=== PATIENT | female | born 1950 | race Caucasian/White ===

== ENCOUNTER 2020-11-30 13:51 | Inpatient (IN) | payer OTHER ==
[2020-11-30 16:22] LABS: BASO % 0.5 % (0-2.0); EOS % 1.6 % (0-4.5); HEMATOCRIT 28.5 % (32.4-45.2); HEMOGLOBIN 9.3 GM/dL (10.7-15.3); LYMPH % 19.9 % (8-40); MCH 30.5 pg (25.7-33.7); MCHC 32.5 g/dl (32.0-36.0); MEAN CELL VOLUME 93.8 fl (80-96); MEAN PLT VOLUME 8.9 fl (7.5-11.1); MONO % 7.9 % (3.8-10.2); NEUT % 70.1 % (42.8-82.8); PLATELET COUNT 302 K/MM3 (134-434); RBC 3.04 M/mm3 (3.60-5.2); RDW 18.1 % (11.6-15.6); WHITE BLOOD COUNT 9.1 K/mm3 (4.0-10.0)
[2020-11-30 16:32] LABS: CHLORIDE 111 mmol/L (98-107); PROTHROMBIN TIME (PATIENT) 12.1 SEC (9.7-13.0); SODIUM 136 mmol/L (136-145)
[2020-11-30 16:33] LABS: CALCIUM 9.5 mg/dL (8.5-10.1)
[2020-11-30 16:34] LABS: ALBUMIN 3.1 g/dl (3.4-5.0); ANION GAP 3 MMOL/L (8-16); BLOOD UREA NITROGEN 24.2 mg/dL (7-18); CO2 22 mmol/L (21-32); GLUCOSE,RANDOM 169 mg/dL (74-106)
[2020-11-30 16:37] LABS: CREATININE 0.8 mg/dL (0.55-1.3); SGOT/AST 53 U/L (15-37); SGPT/ALT 22 U/L (13-61)
[2020-11-30 16:39] LABS: BILIRUBIN,TOTAL 0.4 mg/dL (0.2-1); TOT PROT 7.4 g/dl (6.4-8.2)
[2020-11-30 16:40] LABS: ALK PHOS 275 U/L (45-117)
[2020-11-30 16:42] LABS: N-TERMINAL BNP 418.2 pg/ml (5-125)
[2020-11-30 18:04] LABS: EPI CELLS 4 /uL (0-25.1); HYALINE CASTS 6 /uL (0-3.1); URINE APPEARANCE CLOUDY; URINE BACTERIA 1178 /uL (0-1359); URINE BILIRUBIN NEGATIVE (NEGATIVE); URINE COLOR YELLOW; URINE GLUCOSE (UA) NEGATIVE (NEGATIVE); URINE KETONE NEGATIVE (NEGATIVE); URINE LEUK ESTERASE 2+ (NEGATIVE); URINE NITRITE NEGATIVE (NEGATIVE); URINE PROTEIN 2+ (NEGATIVE); URINE UROBILINOGEN 0.2 mg/dL (0.2-1.0); URINE WBC 174 /uL (0-25.8)
[2020-11-30] MEDS ORDERED: CEFTRIAXONE 1,000 MG in DEXTROSE 5%-WATER - 50 ML IVPB ONE (18:15)
[2020-11-30] MEDS ORDERED: CEFTRIAXONE 1 GM/50 ML BAG ONE (18:33)
[2020-11-30 18:37] LABS: CALCIUM 9.3 mg/dL (8.5-10.1)
[2020-11-30 18:38] LABS: BLOOD UREA NITROGEN 24.3 mg/dL (7-18)
[2020-11-30 18:41] LABS: CREATININE 0.8 mg/dL (0.55-1.3)
[2020-11-30] MEDS ORDERED: FUROSEMIDE 40 MG/4 ML INJECTABLE VIAL IVPUSH ONE (22:58)
[2020-12-01 01:02] VITALS: BMI 19.5
[2020-12-01 08:58] LABS: HEMATOCRIT 26.2 % (32.4-45.2); HEMOGLOBIN 8.7 GM/dL (10.7-15.3); MCH 30.9 pg (25.7-33.7); MCHC 33.3 g/dl (32.0-36.0); MEAN CELL VOLUME 92.8 fl (80-96); MEAN PLT VOLUME 8.9 fl (7.5-11.1); PLATELET COUNT 295 K/MM3 (134-434); RBC 2.82 M/mm3 (3.60-5.2); RDW 17.7 % (11.6-15.6); WHITE BLOOD COUNT 8.9 K/mm3 (4.0-10.0)
[2020-12-01 09:20] LABS: ALBUMIN 2.9 g/dl (3.4-5.0); CALCIUM 9.4 mg/dL (8.5-10.1)
[2020-12-01 09:21] LABS: BLOOD UREA NITROGEN 21.4 mg/dL (7-18); MAGNESIUM 1.8 mg/dL (1.8-2.4)
[2020-12-01 09:24] LABS: CREATININE 0.9 mg/dL (0.55-1.3); PHOSPHOROUS 3.5 mg/dL (2.5-4.9)
[2020-12-01 09:25] LABS: BILIRUBIN,TOTAL 0.2 mg/dL (0.2-1); TOT PROT 6.7 g/dl (6.4-8.2)
[2020-12-01] MEDS ORDERED: FLU VACCINE (FLULAVAL) PF 60 MCG/0.5 ML SYRINGE 2020-2021 IM ONE (10:00)
[2020-12-01] MEDS: ASPIRIN 81 MG CHEWABLE TABLETS PO SCH (10:18)
[2020-12-01] MEDS: CLOPIDOGREL BISULFATE 75 MG TABLET (FP) PO SCH (10:19)
[2020-12-01] MEDS: ENOXAPARIN NA (PORCINE) 40 MG/0.4 ML DISP.SYRIN SQ SCH (10:19)
[2020-12-01] MEDS: INSULIN SLIDING SCALE (NOVOLOG) 1 VIAL SQ SCH ×2 (16:15→21:49)
[2020-12-01] MEDS: ACETAMINOPHEN 325 MG TABLET (FP) PO PRN (20:00)
[2020-12-01] MEDS ORDERED: MELATONIN 5 MG TABLETS PO ONE (22:00)
[2020-12-02] MEDS: INSULIN SLIDING SCALE (NOVOLOG) 1 VIAL SQ SCH ×4 (06:04→21:46)
[2020-12-02] MEDS ORDERED: LOSARTAN POTASSIUM 25 MG TABLET PO ONE (07:39)
[2020-12-02] MEDS ORDERED: DEXTROSE 5%-WATER - 50 ML IVPB ONE (09:23)
[2020-12-02] MEDS ORDERED: cefTRIAXone SODIUM 1 GM VIAL ONE (09:23)
[2020-12-02] MEDS: CLOPIDOGREL BISULFATE 75 MG TABLET (FP) PO SCH (09:30)
[2020-12-02] MEDS: ASPIRIN 81 MG CHEWABLE TABLETS PO SCH (09:31)
[2020-12-02] MEDS: ENOXAPARIN NA (PORCINE) 40 MG/0.4 ML DISP.SYRIN SQ SCH (09:31)
[2020-12-02] MEDS: CEFTRIAXONE 1 GM in DEXTROSE 5%-WATER - 50 ML IVPB SCH (09:31)
[2020-12-02 09:42] LABS: BASO % 0.6 % (0-2.0); HEMATOCRIT 24.2 % (32.4-45.2); HEMOGLOBIN 8.3 GM/dL (10.7-15.3); LYMPH % 21.1 % (8-40); MCH 31.4 pg (25.7-33.7); MCHC 34.1 g/dl (32.0-36.0); MEAN CELL VOLUME 92.1 fl (80-96); MEAN PLT VOLUME 8.5 fl (7.5-11.1); MONO % 11.7 % (3.8-10.2); NEUT % 63.6 % (42.8-82.8); PLATELET COUNT 254 K/MM3 (134-434); RBC 2.63 M/mm3 (3.60-5.2); RDW 17.4 % (11.6-15.6); WHITE BLOOD COUNT 7.2 K/mm3 (4.0-10.0)
[2020-12-02] MEDS ORDERED: PATIENT'S OWN MEDICATION (NON-FORMULARY) (Lisinopril [Zestril] 2.5 MG Tablet) PO SCH (10:00)
[2020-12-02] MEDS ORDERED: LISINOPRIL 5 MG TABLET PO SCH (10:00)
[2020-12-02 10:22] LABS: ALBUMIN 2.4 g/dl (3.4-5.0); BLOOD UREA NITROGEN 20.2 mg/dL (7-18); CALCIUM 8.9 mg/dL (8.5-10.1); MAGNESIUM 1.8 mg/dL (1.8-2.4)
[2020-12-02 10:25] LABS: CREATININE 0.9 mg/dL (0.55-1.3)
[2020-12-02 10:27] LABS: BILIRUBIN,TOTAL 0.2 mg/dL (0.2-1); TOT PROT 5.8 g/dl (6.4-8.2)
[2020-12-02] MEDS: COLLAGENASE CLOSTRIDIUM HIST. 30 GRAMS TUBE TP SCH (10:59)
[2020-12-02] MEDS: ACETAMINOPHEN 325 MG TABLET (FP) PO PRN (13:37)
[2020-12-02] MEDS ORDERED: INSULIN (NOVOLOG) ASPART 100 UNITS/ML 10ML VIAL ONE (17:31)
[2020-12-02] MEDS ORDERED: MELATONIN 5 MG TABLETS PO ONE (21:18)
[2020-12-03] MEDS: INSULIN SLIDING SCALE (NOVOLOG) 1 VIAL SQ SCH ×4 (06:00→21:14)
[2020-12-03] MEDS ORDERED: DEXTROSE 5%-WATER - 50 ML IVPB ONE (08:53)
[2020-12-03] MEDS ORDERED: cefTRIAXone SODIUM 1 GM VIAL ONE (08:53)
[2020-12-03] MEDS: COLLAGENASE CLOSTRIDIUM HIST. 30 GRAMS TUBE TP SCH (09:06)
[2020-12-03] MEDS: ASPIRIN 81 MG CHEWABLE TABLETS PO SCH (09:08)
[2020-12-03] MEDS: ENOXAPARIN NA (PORCINE) 40 MG/0.4 ML DISP.SYRIN SQ SCH (09:08)
[2020-12-03] MEDS: CLOPIDOGREL BISULFATE 75 MG TABLET (FP) PO SCH (09:08)
[2020-12-03] MEDS: CEFTRIAXONE 1 GM in DEXTROSE 5%-WATER - 50 ML IVPB SCH (09:08)
[2020-12-03] MEDS ORDERED: LISINOPRIL 5 MG TABLET PO SCH (10:00)
[2020-12-03] MEDS ORDERED: LISINOPRIL 10 MG TABLET PO SCH (11:44)
[2020-12-03] MEDS ORDERED: INSULIN (NOVOLOG) ASPART 100 UNITS/ML 10ML VIAL ONE ×2 (16:16→21:11)
[2020-12-03] MEDS: ACETAMINOPHEN 325 MG TABLET (FP) PO PRN (16:57)
[2020-12-04] MEDS: ACETAMINOPHEN 325 MG TABLET (FP) PO PRN (04:07)
[2020-12-04] MEDS: INSULIN SLIDING SCALE (NOVOLOG) 1 VIAL SQ SCH ×2 (06:03→11:42)
[2020-12-04] MEDS ORDERED: LISINOPRIL 10 MG TABLET PO SCH (08:37)
[2020-12-04 08:40] LABS: BASO % 0.7 % (0-2.0); EOS % 2.6 % (0-4.5); HEMATOCRIT 27.2 % (32.4-45.2); HEMOGLOBIN 9.3 GM/dL (10.7-15.3); LYMPH % 19.8 % (8-40); MCH 31.6 pg (25.7-33.7); MCHC 34.2 g/dl (32.0-36.0); MEAN CELL VOLUME 92.4 fl (80-96); MEAN PLT VOLUME 8.6 fl (7.5-11.1); MONO % 10.6 % (3.8-10.2); NEUT % 66.3 % (42.8-82.8); PLATELET COUNT 282 K/MM3 (134-434); RBC 2.95 M/mm3 (3.60-5.2); RDW 17.2 % (11.6-15.6); WHITE BLOOD COUNT 8.3 K/mm3 (4.0-10.0)
[2020-12-04 09:26] LABS: CALCIUM 8.8 mg/dL (8.5-10.1)
[2020-12-04 09:27] LABS: BLOOD UREA NITROGEN 36.4 mg/dL (7-18); MAGNESIUM 1.9 mg/dL (1.8-2.4)
[2020-12-04 09:30] LABS: CREATININE 1.2 mg/dL (0.55-1.3); PHOSPHOROUS 4.1 mg/dL (2.5-4.9)
[2020-12-04 09:31] LABS: BILIRUBIN,TOTAL 0.2 mg/dL (0.2-1); TOT PROT 6.5 g/dl (6.4-8.2)
[2020-12-04 09:35] LABS: ALBUMIN 2.9 g/dl (3.4-5.0)
[2020-12-04] MEDS ORDERED: cefTRIAXone SODIUM 1 GM VIAL ONE (09:37)
[2020-12-04] MEDS ORDERED: DEXTROSE 5%-WATER - 50 ML IVPB ONE (09:38)
[2020-12-04] MEDS: ENOXAPARIN NA (PORCINE) 40 MG/0.4 ML DISP.SYRIN SQ SCH (09:39)
[2020-12-04] MEDS: CLOPIDOGREL BISULFATE 75 MG TABLET (FP) PO SCH (09:39)
[2020-12-04] MEDS: CEFTRIAXONE 1 GM in DEXTROSE 5%-WATER - 50 ML IVPB SCH (09:39)
[2020-12-04] MEDS: ASPIRIN 81 MG CHEWABLE TABLETS PO SCH (09:39)
[2020-12-04] MEDS: COLLAGENASE CLOSTRIDIUM HIST. 30 GRAMS TUBE TP SCH (09:39)
[2020-12-04] MEDS ORDERED: LISINOPRIL 20 MG TABLET PO SCH (10:00)
[2020-12-04 14:50] VITALS: BP 130/65; PULSE 81; TEMP 98.4
== END 2020-12-04 16:43 | disposition home health service (06) | DRG 300 ==
LOC: JER 13:51 → JERBED 20:02 → J6S 12-01 00:26
PROVIDERS: ADMIT Internal Medicine; ATTEND Internal Medicine
PROC: B24BZZZ Ultrasonography of Heart with Aorta (ICD-10-PCS; principal; 2020-12-02)
DX: E11.52 Type 2 diabetes mellitus with diabetic peripheral angiopathy with gangrene (principal); N39.0 Urinary tract infection, site not specified; Z91.14 Patient's other noncompliance with medication regimen; D64.9 Anemia, unspecified; Z89.421 Acquired absence of other right toe(s); Z86.16 Personal history of COVID-19; Z79.4 Long term (current) use of insulin; E11.621 Type 2 diabetes mellitus with foot ulcer; L97.519 Non-pressure chronic ulcer of other part of right foot with unspecified severity; T46.1X5A Adverse effect of calcium-channel blockers, initial encounter; I11.0 Hypertensive heart disease with heart failure; I50.9 Heart failure, unspecified
CPT/HCPCS: 36415; 71046-TC-FY; 73630-TC-RT-FY; 80048; 80053; 81003; 82550; 82728; 82962; 83010; 83550; 83735; 83880; 84100; 84484; 85025; 85027; 85045; 85610; 87086; 87186; 93005; 93010; 93306-TC; 93922; 93926-TC; 93970-TC; 97116-GP; 97161-GP; 99285-25; C9803; G0008; Q2036; U0003

== ENCOUNTER 2021-08-14 12:14 | Inpatient (IN) | payer BC, OTHER ==
[2021-08-14] MEDS ORDERED: HEPARIN NA (PORCINE) 5,000 UNITS/ML 1ML VIAL IVPUSH PRN ×2 (16:44)
[2021-08-14] MEDS ORDERED: HEPARIN - 25,000 UNIT in SODIUM CHLORIDE 495 ML IV SCH (16:45)
[2021-08-14 16:54] LABS: BASO % 0.5 % (0-2.0); EOS % 3.6 % (0-4.5); HEMATOCRIT 23.1 % (32.4-45.2); HEMOGLOBIN 7.5 GM/dL (10.7-15.3); LYMPH % 19.7 % (8-40); MCH 31.1 pg (25.7-33.7); MCHC 32.5 g/dl (32.0-36.0); MEAN CELL VOLUME 95.7 fl (80-96); MEAN PLT VOLUME 8.7 fl (7.5-11.1); MONO % 10.2 % (3.8-10.2); PLATELET COUNT 259 10^3/uL (134-434); RBC 2.42 M/mm3 (3.60-5.2); RDW 17.2 % (11.6-15.6); WHITE BLOOD COUNT 9.1 K/mm3 (4.0-10.0)
[2021-08-14 17:05] LABS: INR 1.05 (0.83-1.09); PROTHROMBIN TIME (PATIENT) 12.3 SEC (9.7-13.0)
[2021-08-14 17:08] LABS: ACTIVATED PTT 29.8 SECONDS (25.2-36.5)
[2021-08-14 17:16] LABS: CALCIUM 8.6 mg/dL (8.5-10.1)
[2021-08-14 17:17] LABS: ALBUMIN 2.6 g/dl (3.4-5.0)
[2021-08-14 17:18] LABS: BILIRUBIN,TOTAL 0.1 mg/dL (0.2-1); TOT PROT 6.5 g/dl (6.4-8.2)
[2021-08-14 17:20] LABS: CREATININE 1.7 mg/dL (0.55-1.3)
[2021-08-14] MEDS ORDERED: SODIUM CHLORIDE 0.9% 500 ML INFUS.BAG IV ONE ×2 (17:45→18:15)
[2021-08-14] MEDS ORDERED: INSULIN REGULAR HUMAN 100 UNITS/ML *VIAL IVPUSH ONE (18:15)
[2021-08-14] MEDS ORDERED: DEXTROSE 50%-WATER - 25 GM/50 ML VIAL IVPUSH ONE (18:16)
[2021-08-14] MEDS ORDERED: SODIUM ZIRCONIUM CYCLOSILICATE (LOKELMA) 5 GM PACKET PO ONE (18:18)
[2021-08-14] MEDS ORDERED: DEXTROSE 50%-WATER 25 GM/50 ML DISP.SYRIN ONE (18:28)
[2021-08-14] MEDS ORDERED: SODIUM ZIRCONIUM CYCLOSILICATE (LOKELMA) 5 GM PACKET ONE (18:28)
[2021-08-14] MEDS ORDERED: ACETAMINOPHEN 325 MG TABLET (FP) PO PRN (22:53)
[2021-08-14] MEDS ORDERED: VANCOMYCIN 1 GRAM (PRE-DOCKED) 1,000 MG/250 ML BAG IVPB SCH (23:45)
[2021-08-14] MEDS ORDERED: SODIUM CHLORIDE 1,000 ML IV SCH (23:45)
[2021-08-14] MEDS ORDERED: PIPERACILLIN/TAZOB 2.25 GM 2.25 GM in DEXTROSE 5%-WATER - 50 ML IVPB SCH (23:45)
[2021-08-14] MEDS ORDERED: VANCOMYCIN 1 GRAM (PRE-DOCKED) 1,000 MG/250 ML BAG IVPB ONE (23:55)
[2021-08-15] MEDS ORDERED: DEXTROSE 5%-WATER - 50 ML IVPB ONE ×2 (02:41→08:40)
[2021-08-15] MEDS ORDERED: PIPERACILLIN/TAZOBACTAM 2.25 GM VIAL IVPB ONE ×2 (02:41→08:40)
[2021-08-15] MEDS ORDERED: PIPERACILLIN/TAZOB 2.25 GM 2.25 GM in DEXTROSE 5%-WATER - 50 ML IVPB SCH ×4 (03:00→15:00)
[2021-08-15 03:19] LABS: HEMATOCRIT 21.7 % (32.4-45.2); MCH 30.6 pg (25.7-33.7); MCHC 32.1 g/dl (32.0-36.0); MEAN CELL VOLUME 95.3 fl (80-96); MEAN PLT VOLUME 8.4 fl (7.5-11.1); PLATELET COUNT 212 10^3/uL (134-434); RBC 2.28 M/mm3 (3.60-5.2); WHITE BLOOD COUNT 7.3 K/mm3 (4.0-10.0)
[2021-08-15] MEDS: INSULIN SLIDING SCALE (NOVOLOG) 1 VIAL SQ SCH ×2 (06:01→11:30)
[2021-08-15] MEDS ORDERED: PIPERACILLIN/TAZOB 2.25 GM 2.25 GM in DEXTROSE 5%-WATER - 50 ML IVPB ONE (08:15)
[2021-08-15] MEDS ORDERED: HEPARIN NA (PORCINE) 5,000 UNITS/ML 1ML VIAL ONE ×2 (08:18→10:29)
[2021-08-15] MEDS ORDERED: LIDOCAINE HCL 1%, 10 MG/ML (20ML VIAL) ONE (08:18)
[2021-08-15] MEDS ORDERED: PT OWN MED DRAWER 7, Y5N ONE ×2 (08:41→21:21)
[2021-08-15 09:05] LABS: BASO % 0.6 % (0-2.0); EOS % 4.5 % (0-4.5); HEMATOCRIT 22.3 % (32.4-45.2); HEMOGLOBIN 7.4 GM/dL (10.7-15.3); LYMPH % 22.6 % (8-40); MCH 31.5 pg (25.7-33.7); MCHC 33.4 g/dl (32.0-36.0); MEAN CELL VOLUME 94.2 fl (80-96); MEAN PLT VOLUME 8.4 fl (7.5-11.1); MONO % 11.6 % (3.8-10.2); NEUT % 60.7 % (42.8-82.8); PLATELET COUNT 224 10^3/uL (134-434); RBC 2.36 M/mm3 (3.60-5.2); RDW 16.4 % (11.6-15.6); WHITE BLOOD COUNT 7.1 K/mm3 (4.0-10.0)
[2021-08-15 09:36] LABS: CALCIUM 8.2 mg/dL (8.5-10.1)
[2021-08-15 09:37] LABS: ALBUMIN 2.3 g/dl (3.4-5.0); BLOOD UREA NITROGEN 44.2 mg/dL (7-18); MAGNESIUM 2.2 mg/dL (1.8-2.4)
[2021-08-15 09:40] LABS: CREATININE 1.3 mg/dL (0.55-1.3); PHOSPHOROUS 3.4 mg/dL (2.5-4.9)
[2021-08-15 09:41] LABS: BILIRUBIN,TOTAL 0.1 mg/dL (0.2-1); TOT PROT 5.8 g/dl (6.4-8.2)
[2021-08-15] MEDS ORDERED: MIDAZOLAM HCL 2 MG/2 ML SINGLE DOSE VIAL ONE ×2 (09:56)
[2021-08-15] MEDS ORDERED: CHOLECALCIFEROL (VIT D3) 400 UNIT (10 MCG) TABLET PO SCH (10:00)
[2021-08-15] MEDS ORDERED: BACITRACIN 15 GM TUBE TOPICAL OINTMENT TP SCH (10:00)
[2021-08-15] MEDS ORDERED: GABAPENTIN 100 MG CAPSULE PO SCH (10:00)
[2021-08-15] MEDS ORDERED: PROPOFOL 20 ML ONE (10:11)
[2021-08-15] MEDS ORDERED: LIDOCAINE HCL 1%, 10 MG/ML (20ML VIAL) NR ONE ×2 (10:18)
[2021-08-15] MEDS ORDERED: CLOPIDOGREL BISULFATE 75 MG TABLET (FP) PO SCH (11:15)
[2021-08-15] MEDS ORDERED: oxyCODONE HCL 5 MG TABLET PO PRN (11:17)
[2021-08-15] MEDS ORDERED: SODIUM CHLORIDE 1,000 ML IV SCH (11:24)
[2021-08-15] MEDS ORDERED: CLOPIDOGREL BISULFATE 75 MG TABLET (FP) PO ONE (12:00)
[2021-08-15] MEDS: PIPERACILLIN/TAZOB 2.25 GM 2.25 GM in DEXTROSE 5%-WATER - 50 ML IVPB SCH ×2 (12:29→12:30)
[2021-08-15] MEDS: VANCOMYCIN 1 GM in D5W (PRE-DOCKED) 1,000 MG/250 ML IVPB SCH (12:30)
[2021-08-15] MEDS ORDERED: SODIUM CHLORIDE 500 ML IV STA (15:27)
[2021-08-15] MEDS ORDERED: POLYETHYLENE GLYCOL 3350 119 GM BTL PO ONE (16:49)
[2021-08-15] MEDS: NYSTATIN 100,000 UNIT/GM TOPICAL CREAM 15 GM TUBE TP SCH (21:41)
[2021-08-15] MEDS: POLYETHYLENE GLYCOL 3350 119 GM BTL PO SCH (21:41)
[2021-08-15] MEDS: ATORVASTATIN CA 40 MG TABLET (FP) PO SCH (21:41)
[2021-08-15] MEDS: DOCUSATE SODIUM 100 MG CAPSULE (FP) PO SCH (21:41)
[2021-08-15] MEDS: RIVAROXABAN 2.5 MG TABLET PO SCH (21:42)
[2021-08-15] MEDS: ACETAMINOPHEN 325 MG TABLET (FP) PO PRN (21:47)
[2021-08-15] MEDS ORDERED: ATORVASTATIN CA 40 MG TABLET (FP) PO SCH (22:00)
[2021-08-16] MEDS ORDERED: VANCOMYCIN 1 GRAM (PRE-DOCKED) 1,000 MG/250 ML BAG IVPB SCH
[2021-08-16 09:34] LABS: HEMATOCRIT 14.5 % (32.4-45.2); MCH 30.6 pg (25.7-33.7); MCHC 32.8 g/dl (32.0-36.0); MEAN CELL VOLUME 93.1 fl (80-96); MEAN PLT VOLUME 8.7 fl (7.5-11.1); PLATELET COUNT 198 10^3/uL (134-434); RBC 1.56 M/mm3 (3.60-5.2); RDW 17.7 % (11.6-15.6); WHITE BLOOD COUNT 13.3 K/mm3 (4.0-10.0)
[2021-08-16] MEDS: ASPIRIN COATED 81 MG TABLET.EC PO SCH (09:41)
[2021-08-16] MEDS: GABAPENTIN 100 MG CAPSULE PO SCH (09:42)
[2021-08-16] MEDS: CHOLECALCIFEROL (VIT D3) 400 UNIT (10 MCG) TABLET PO SCH (09:42)
[2021-08-16 09:44] LABS: HEMOGLOBIN 4.8 GM/dL (10.7-15.3)
[2021-08-16] MEDS ORDERED: VANCOMYCIN 1 GM in D5W (PRE-DOCKED) 1,000 MG/250 ML IVPB SCH (10:00)
[2021-08-16 10:17] LABS: ALBUMIN 2.2 g/dl (3.4-5.0); BLOOD UREA NITROGEN 48.5 mg/dL (7-18); CALCIUM 7.4 mg/dL (8.5-10.1); MAGNESIUM 2.1 mg/dL (1.8-2.4)
[2021-08-16 10:20] LABS: CREATININE 2.1 mg/dL (0.55-1.3)
[2021-08-16 10:22] LABS: BILIRUBIN,TOTAL 0.1 mg/dL (0.2-1); TOT PROT 5.5 g/dl (6.4-8.2)
[2021-08-16 10:52] LABS: ANISOCYTOSIS 1+; MACROCYTOSIS 1+; PLATELET ESTIMATE NORMAL
[2021-08-16] MEDS: NYSTATIN 100,000 UNIT/GM TOPICAL CREAM 15 GM TUBE TP SCH ×2 (11:35→21:32)
[2021-08-16] MEDS: POLYETHYLENE GLYCOL 3350 119 GM BTL PO SCH ×2 (11:36→21:40)
[2021-08-16] MEDS: BACITRACIN 15 GM TUBE TOPICAL OINTMENT TP SCH (11:36)
[2021-08-16 12:40] LABS: BASO % 0.1 % (0-2.0); EOS % 0.1 % (0-4.5); HEMATOCRIT 13.1 % (32.4-45.2); LYMPH % 9.1 % (8-40); MCH 30.5 pg (25.7-33.7); MCHC 32.9 g/dl (32.0-36.0); MEAN CELL VOLUME 92.8 fl (80-96); MEAN PLT VOLUME 8.3 fl (7.5-11.1); MONO % 12.4 % (3.8-10.2); NEUT % 78.3 % (42.8-82.8); PLATELET COUNT 197 10^3/uL (134-434); RBC 1.41 M/mm3 (3.60-5.2); RDW 17.3 % (11.6-15.6); WHITE BLOOD COUNT 14.6 K/mm3 (4.0-10.0)
[2021-08-16 12:50] LABS: HEMOGLOBIN 4.3 GM/dL (10.7-15.3)
[2021-08-16] MEDS: RIVAROXABAN 2.5 MG TABLET PO SCH (13:23)
[2021-08-16] MEDS ORDERED: PT OWN MED DRAWER 7, Y5N ONE (14:39)
[2021-08-16] MEDS: SODIUM ZIRCONIUM CYCLOSILICATE (LOKELMA) 5 GM PACKET PO SCH (17:15)
[2021-08-16] MEDS: SODIUM CHLORIDE 1,000 ML IV SCH (17:16)
[2021-08-16 20:31] LABS: MCH 28.5 pg (25.7-33.7); MCHC 32.1 g/dl (32.0-36.0); MEAN CELL VOLUME 88.7 fl (80-96); MEAN PLT VOLUME 8.1 fl (7.5-11.1); PLATELET COUNT 168 10^3/uL (134-434); RBC 1.92 M/mm3 (3.60-5.2); RDW 18.7 % (11.6-15.6); WHITE BLOOD COUNT 14.3 K/mm3 (4.0-10.0)
[2021-08-16 20:39] LABS: HEMATOCRIT 17.1 % (32.4-45.2); HEMOGLOBIN 5.5 GM/dL (10.7-15.3)
[2021-08-16] MEDS: ATORVASTATIN CA 40 MG TABLET (FP) PO SCH (21:32)
[2021-08-16] MEDS: DOCUSATE SODIUM 100 MG CAPSULE (FP) PO SCH (21:40)
[2021-08-17 01:45] LABS: BASO % 0.4 % (0-2.0); HEMATOCRIT 21.5 % (32.4-45.2); HEMOGLOBIN 7.2 GM/dL (10.7-15.3); LYMPH % 11.2 % (8-40); MCH 29.4 pg (25.7-33.7); MCHC 33.3 g/dl (32.0-36.0); MEAN CELL VOLUME 88.4 fl (80-96); MEAN PLT VOLUME 7.7 fl (7.5-11.1); MONO % 13.4 % (3.8-10.2); PLATELET COUNT 170 10^3/uL (134-434); RBC 2.44 M/mm3 (3.60-5.2); RDW 17.2 % (11.6-15.6); WHITE BLOOD COUNT 13.7 K/mm3 (4.0-10.0)
[2021-08-17] MEDS: ACETAMINOPHEN 325 MG TABLET (FP) PO PRN ×2 (06:08→21:49)
[2021-08-17] MEDS ORDERED: ACETAMINOPHEN 1000 MG/100 ML BAG IVPB PRN (09:07)
[2021-08-17 10:22] LABS: BASO % 0.2 % (0-2.0); EOS % 1.2 % (0-4.5); HEMATOCRIT 26.7 % (32.4-45.2); HEMOGLOBIN 9.1 GM/dL (10.7-15.3); LYMPH % 10.4 % (8-40); MCHC 33.9 g/dl (32.0-36.0); MEAN CELL VOLUME 88.3 fl (80-96); MEAN PLT VOLUME 8.4 fl (7.5-11.1); MONO % 11.4 % (3.8-10.2); NEUT % 76.8 % (42.8-82.8); PLATELET COUNT 157 10^3/uL (134-434); RBC 3.02 M/mm3 (3.60-5.2); RDW 16.6 % (11.6-15.6); WHITE BLOOD COUNT 13.5 K/mm3 (4.0-10.0)
[2021-08-17] MEDS: amLODIPine BESYLATE 5 MG TABLET (FP) PO SCH (10:46)
[2021-08-17] MEDS: GABAPENTIN 100 MG CAPSULE PO SCH ×2 (10:53→21:49)
[2021-08-17] MEDS: CHOLECALCIFEROL (VIT D3) 400 UNIT (10 MCG) TABLET PO SCH (10:53)
[2021-08-17 10:54] LABS: ALBUMIN 2.3 g/dl (3.4-5.0); BLOOD UREA NITROGEN 34.6 mg/dL (7-18); CALCIUM 8.3 mg/dL (8.5-10.1); MAGNESIUM 2.4 mg/dL (1.8-2.4)
[2021-08-17 10:57] LABS: CREATININE 1.4 mg/dL (0.55-1.3)
[2021-08-17 10:59] LABS: BILIRUBIN,TOTAL 0.9 mg/dL (0.2-1); TOT PROT 5.7 g/dl (6.4-8.2)
[2021-08-17] MEDS: SODIUM ZIRCONIUM CYCLOSILICATE (LOKELMA) 5 GM PACKET PO SCH (11:00)
[2021-08-17] MEDS: BACITRACIN 15 GM TUBE TOPICAL OINTMENT TP SCH (11:00)
[2021-08-17] MEDS ORDERED: PT OWN MED DRAWER 7, Y5N ONE ×2 (11:26→21:11)
[2021-08-17 13:04] VITALS: BMI 23.2
[2021-08-17] MEDS: NYSTATIN 100,000 UNIT/GM TOPICAL CREAM 15 GM TUBE TP SCH ×2 (13:34→22:37)
[2021-08-17] MEDS: SODIUM CHLORIDE 1,000 ML IV SCH (13:36)
[2021-08-17] MEDS: INSULIN SLIDING SCALE (NOVOLOG) 1 VIAL SQ SCH ×2 (17:03→21:57)
[2021-08-17] MEDS: POLYETHYLENE GLYCOL 3350 119 GM BTL PO SCH (17:26)
[2021-08-17] MEDS: ATORVASTATIN CA 40 MG TABLET (FP) PO SCH (21:49)
[2021-08-17] MEDS: DOCUSATE SODIUM 100 MG CAPSULE (FP) PO SCH (21:56)
[2021-08-17] MEDS: POLYETHYLENE GLYCOL (HEALTHYLAX) 3350 17 GM PACKET PO SCH (21:57)
[2021-08-17] MEDS ORDERED: POLYETHYLENE GLYCOL (HEALTHYLAX) 3350 17 GM PACKET PO SCH (22:00)
[2021-08-18] MEDS ORDERED: traMADol HCL 50 MG TABLET PO ONE (01:52)
[2021-08-18] MEDS: INSULIN SLIDING SCALE (NOVOLOG) 1 VIAL SQ SCH ×4 (06:07→23:27)
[2021-08-18 09:11] LABS: BASO % 0.3 % (0-2.0); EOS % 3.5 % (0-4.5); HEMATOCRIT 33.1 % (32.4-45.2); HEMOGLOBIN 11.2 GM/dL (10.7-15.3); LYMPH % 10.8 % (8-40); MCH 29.9 pg (25.7-33.7); MCHC 33.8 g/dl (32.0-36.0); MEAN CELL VOLUME 88.4 fl (80-96); MEAN PLT VOLUME 8.2 fl (7.5-11.1); MONO % 10.7 % (3.8-10.2); NEUT % 74.7 % (42.8-82.8); PLATELET COUNT 164 10^3/uL (134-434); RBC 3.74 M/mm3 (3.60-5.2); WHITE BLOOD COUNT 13.5 K/mm3 (4.0-10.0)
[2021-08-18 09:34] LABS: CALCIUM 8.1 mg/dL (8.5-10.1)
[2021-08-18 09:35] LABS: ALBUMIN 2.2 g/dl (3.4-5.0); MAGNESIUM 2.3 mg/dL (1.8-2.4)
[2021-08-18 09:38] LABS: CREATININE 1.3 mg/dL (0.55-1.3)
[2021-08-18 09:39] LABS: BILIRUBIN,TOTAL 0.6 mg/dL (0.2-1); TOT PROT 5.8 g/dl (6.4-8.2)
[2021-08-18] MEDS: NYSTATIN 100,000 UNIT/GM TOPICAL CREAM 15 GM TUBE TP SCH ×2 (10:20→23:21)
[2021-08-18] MEDS: amLODIPine BESYLATE 5 MG TABLET (FP) PO SCH (10:21)
[2021-08-18] MEDS: PANTOPRAZOLE 40 MG TABLET PO SCH (10:21)
[2021-08-18] MEDS: GABAPENTIN 100 MG CAPSULE PO SCH ×2 (10:21→23:18)
[2021-08-18] MEDS: CHOLECALCIFEROL (VIT D3) 400 UNIT (10 MCG) TABLET PO SCH (10:22)
[2021-08-18] MEDS: POLYETHYLENE GLYCOL (HEALTHYLAX) 3350 17 GM PACKET PO SCH ×2 (10:22→23:18)
[2021-08-18] MEDS: BACITRACIN 15 GM TUBE TOPICAL OINTMENT TP SCH (10:33)
[2021-08-18] MEDS ORDERED: TAMSULOSIN HCL 0.4 MG CAP PO ONE (11:23)
[2021-08-18] MEDS ORDERED: LISINOPRIL 5 MG TABLET PO ONE (12:55)
[2021-08-18] MEDS ORDERED: amLODIPine BESYLATE 10 MG TABLET (FP) PO SCH (12:55)
[2021-08-18] MEDS ORDERED: TAMSULOSIN HCL 0.4 MG CAP PO SCH (22:00)
[2021-08-18] MEDS ORDERED: PT OWN MED DRAWER 7, Y5N ONE (23:12)
[2021-08-18] MEDS: DOCUSATE SODIUM 100 MG CAPSULE (FP) PO SCH (23:18)
[2021-08-18] MEDS: ATORVASTATIN CA 40 MG TABLET (FP) PO SCH (23:18)
[2021-08-18] MEDS: RIVAROXABAN 2.5 MG TABLET PO SCH (23:19)
[2021-08-19] MEDS: INSULIN SLIDING SCALE (NOVOLOG) 1 VIAL SQ SCH (06:55)
[2021-08-19] MEDS ORDERED: PT OWN MED DRAWER 7, Y5N ONE (09:28)
[2021-08-19] MEDS: POLYETHYLENE GLYCOL (HEALTHYLAX) 3350 17 GM PACKET PO SCH (09:36)
[2021-08-19] MEDS: BACITRACIN 15 GM TUBE TOPICAL OINTMENT TP SCH (09:36)
[2021-08-19] MEDS: NYSTATIN 100,000 UNIT/GM TOPICAL CREAM 15 GM TUBE TP SCH (09:36)
[2021-08-19] MEDS: GABAPENTIN 100 MG CAPSULE PO SCH (09:36)
[2021-08-19] MEDS: ASPIRIN COATED 81 MG TABLET.EC PO SCH (09:36)
[2021-08-19] MEDS: PANTOPRAZOLE 40 MG TABLET PO SCH (09:36)
[2021-08-19] MEDS: CHOLECALCIFEROL (VIT D3) 400 UNIT (10 MCG) TABLET PO SCH (09:36)
[2021-08-19] MEDS: RIVAROXABAN 2.5 MG TABLET PO SCH (09:37)
[2021-08-19] MEDS ORDERED: LISINOPRIL 5 MG TABLET PO SCH (10:00)
[2021-08-19 11:43] VITALS: BP 127/67; PULSE 88; TEMP 98.5
== END 2021-08-19 11:48 | disposition home health service (06) | DRG 253 ==
LOC: JER 12:14 → JERBED 21:17 → J8W 08-15 01:37
PROVIDERS: ADMIT Internal Medicine; ATTEND Nurse Practitioner Family
PROC: 047K3DZ Dilation of Right Femoral Artery with Intraluminal Device, Percutaneous Approach (ICD-10-PCS; 2021-08-15)
PROC: 3E05317 Introduction of Other Thrombolytic into Peripheral Artery, Percutaneous Approach (ICD-10-PCS; 2021-08-15)
PROC: B41DZZZ Fluoroscopy of Aorta and Bilateral Lower Extremity Arteries (ICD-10-PCS; 2021-08-15)
PROC: 30233N1 Transfusion of Nonautologous Red Blood Cells into Peripheral Vein, Percutaneous Approach (ICD-10-PCS; 2021-08-15)
PROC: 047K3Z1 Dilation of Right Femoral Artery using Drug-Coated Balloon, Percutaneous Approach (ICD-10-PCS; principal; 2021-08-15 09:30)
DX: T82.898A Other specified complication of vascular prosthetic devices, implants and grafts, initial encounter (principal); I70.33 Atherosclerosis of unspecified type of bypass graft(s) of the right leg with ulceration; I13.0 Hypertensive heart and chronic kidney disease with heart failure and stage 1 through stage 4 chronic kidney disease, or unspecified chronic kidney disease; N17.9 Acute kidney failure, unspecified; D62 Acute posthemorrhagic anemia; N99.840 Postprocedural hematoma of a genitourinary system organ or structure following a genitourinary system procedure; S37.019A Minor contusion of unspecified kidney, initial encounter; E11.51 Type 2 diabetes mellitus with diabetic peripheral angiopathy without gangrene; R20.0 Anesthesia of skin; Z79.4 Long term (current) use of insulin; L97.529 Non-pressure chronic ulcer of other part of left foot with unspecified severity; L08.9 Local infection of the skin and subcutaneous tissue, unspecified; M79.605 Pain in left leg; Z95.820 Peripheral vascular angioplasty status with implants and grafts; M79.604 Pain in right leg; I77.89 Other specified disorders of arteries and arterioles; E11.621 Type 2 diabetes mellitus with foot ulcer; I50.9 Heart failure, unspecified; Y83.9 Surgical procedure, unspecified as the cause of abnormal reaction of the patient, or of later complication, without mention of misadventure at the time of the procedure; N18.9 Chronic kidney disease, unspecified; R33.9 Retention of urine, unspecified
CPT/HCPCS: 36415; 36430; 36511; 74176-TC; 76000-TC-FY; 80053; 82272; 82962; 83540; 83550; 83605; 83735; 84100; 85025; 85027; 85610; 85730; 86850; 86900; 86901; 86922; 87070; 87205; 93005; 93010; 93926-TC; 94760; 99285-25; C9803; J0131; J1644; P9038; P9058; U0003; U0005

== ENCOUNTER 2021-11-18 14:23 | Inpatient (IN) | payer OTHER ==
[2021-11-18] MEDS ORDERED: PIPERACILLIN/TAZOB 4.5 GM 4.5 GM in DEXTROSE 5%-WATER 100 ML IVPB ONE (17:56)
[2021-11-18] MEDS ORDERED: VANCOMYCIN 1 GM in D5W (PRE-DOCKED) 1,000 MG/250 ML IVPB ONE (17:56)
[2021-11-18] MEDS ORDERED: ACETAMINOPHEN 1000 MG/100 ML BAG IVPB ONE (18:04)
[2021-11-18] MEDS ORDERED: PIPERACILLIN/TAZOB 4.5 GM 4.5 GM/100 ML BAG IVPB ONE (18:05)
[2021-11-18] MEDS ORDERED: VANCOMYCIN 1 GRAM (PRE-DOCKED) 1,000 MG/250 ML BAG IVPB ONE (18:06)
[2021-11-18 19:12] LABS: BASO % 0.4 % (0-2.0); EOS % 0.8 % (0-4.5); HEMATOCRIT 23.4 % (32.4-45.2); HEMOGLOBIN 7.8 GM/dL (10.7-15.3); LYMPH % 8.6 % (8-40); MCH 30.5 pg (25.7-33.7); MCHC 33.1 g/dl (32.0-36.0); MEAN CELL VOLUME 92.2 fl (80-96); MEAN PLT VOLUME 8.2 fl (7.5-11.1); MONO % 9.2 % (3.8-10.2); PLATELET COUNT 318 10^3/uL (134-434); RBC 2.54 M/mm3 (3.60-5.2); RDW 14.3 % (11.6-15.6); WHITE BLOOD COUNT 13.2 K/mm3 (4.0-10.0)
[2021-11-18 19:38] LABS: ALBUMIN 2.7 g/dl (3.4-5.0); BLOOD UREA NITROGEN 36.1 mg/dL (7-18); CALCIUM 8.7 mg/dL (8.5-10.1)
[2021-11-18 19:41] LABS: CREATININE 1.7 mg/dL (0.55-1.3)
[2021-11-18 19:43] LABS: BILIRUBIN,TOTAL 0.1 mg/dL (0.2-1); TOT PROT 6.8 g/dl (6.4-8.2)
[2021-11-18] MEDS ORDERED: SODIUM CHLORIDE 0.9% 1000 ML INFUS.BAG IV ONE (19:52)
[2021-11-18 20:02] LABS: ERYTHROCYTE SEDIMENTATION RATE 129 mm/hr (0-30)
[2021-11-18] MEDS ORDERED: ACETAMINOPHEN 1000 MG/100 ML BAG IVPB PRN (21:04)
[2021-11-18] MEDS ORDERED: amLODIPine BESYLATE 5 MG TABLET (FP) PO ONE (21:19)
[2021-11-18] MEDS ORDERED: amLODIPine BESYLATE 5 MG TABLET (FP) ONE (21:29)
[2021-11-18] MEDS ORDERED: GABAPENTIN 100 MG CAPSULE ONE (21:29)
[2021-11-18] MEDS: GABAPENTIN 300 MG CAPSULE PO SCH (21:30)
[2021-11-18] MEDS ORDERED: SODIUM CHLORIDE 1,000 ML IV SCH (23:15)
[2021-11-19] MEDS ORDERED: PIPERACILLIN/TAZOBACTAM 2.25 GM VIAL IVPB ONE ×5 (03:54→23:03)
[2021-11-19] MEDS ORDERED: DEXTROSE 5%-WATER - 50 ML IVPB ONE ×5 (03:56→23:04)
[2021-11-19] MEDS: PIPERACILLIN/TAZOB 2.25 GM 2.25 GM in DEXTROSE 5%-WATER - 50 ML IVPB SCH ×5 (04:00→23:06)
[2021-11-19] MEDS ORDERED: VANCOMYCIN 1 GM in D5W (PRE-DOCKED) 1,000 MG/250 ML IVPB SCH (06:00)
[2021-11-19] MEDS: INSULIN SLIDING SCALE (NOVOLOG) 1 VIAL SQ SCH ×4 (06:12→21:44)
[2021-11-19 08:43] LABS: BASO % 0.4 % (0-2.0); EOS % 2.9 % (0-4.5); HEMATOCRIT 22.3 % (32.4-45.2); HEMOGLOBIN 7.4 GM/dL (10.7-15.3); LYMPH % 13.2 % (8-40); MCH 30.2 pg (25.7-33.7); MCHC 33.1 g/dl (32.0-36.0); MEAN CELL VOLUME 91.4 fl (80-96); MEAN PLT VOLUME 7.9 fl (7.5-11.1); MONO % 12.7 % (3.8-10.2); NEUT % 70.8 % (42.8-82.8); PLATELET COUNT 292 10^3/uL (134-434); RBC 2.44 M/mm3 (3.60-5.2); RDW 14.1 % (11.6-15.6); WHITE BLOOD COUNT 9.9 K/mm3 (4.0-10.0)
[2021-11-19 08:47] LABS: INR 1.26 (0.83-1.09); PROTHROMBIN TIME (PATIENT) 14.5 SEC (9.7-13.0)
[2021-11-19 08:50] LABS: ACTIVATED PTT 33.8 SECONDS (25.2-36.5)
[2021-11-19 09:19] LABS: ALBUMIN 2.3 g/dl (3.4-5.0); CALCIUM 8.3 mg/dL (8.5-10.1)
[2021-11-19 09:20] LABS: BLOOD UREA NITROGEN 26.4 mg/dL (7-18)
[2021-11-19 09:22] LABS: CREATININE 1.4 mg/dL (0.55-1.3)
[2021-11-19 09:24] LABS: BILIRUBIN,TOTAL 0.4 mg/dL (0.2-1); TOT PROT 5.9 g/dl (6.4-8.2)
[2021-11-19] MEDS: GABAPENTIN 300 MG CAPSULE PO SCH (11:59)
[2021-11-19] MEDS: PANTOPRAZOLE 40 MG TABLET PO SCH (11:59)
[2021-11-19] MEDS ORDERED: VANCOMYCIN 1 GM/200 ML PREMIX BAG IVPB SCH (18:00)
[2021-11-19] MEDS ORDERED: PNEUMOC 13-VAL CONJ-DIP CRM/PF 0.5 ML DISP.SYRIN IM ONE (19:30)
[2021-11-19] MEDS ORDERED: FLU VACC QS2021-22(6MOS UP)/PF 60 MCG/0.5 ML SYRINGE IM ONE (19:30)
[2021-11-19] MEDS: HEPARIN NA (PORCINE) 5,000 UNITS/ML 1ML VIAL SQ SCH (21:44)
[2021-11-19] MEDS: LISINOPRIL 20 MG TABLET PO SCH (21:44)
[2021-11-19] MEDS: VANCOMYCIN 1 GM in D5W (PRE-DOCKED) 1,000 MG/250 ML IVPB SCH (22:10)
[2021-11-20] MEDS ORDERED: PIPERACILLIN/TAZOBACTAM 2.25 GM VIAL IVPB ONE ×4 (04:07→20:00)
[2021-11-20] MEDS ORDERED: DEXTROSE 5%-WATER - 50 ML IVPB ONE ×4 (04:08→20:00)
[2021-11-20] MEDS: PIPERACILLIN/TAZOB 2.25 GM 2.25 GM in DEXTROSE 5%-WATER - 50 ML IVPB SCH ×5 (04:26→20:18)
[2021-11-20] MEDS ORDERED: ACETAMINOPHEN 1000 MG/100 ML BAG IVPB ONE (04:57)
[2021-11-20] MEDS: INSULIN SLIDING SCALE (NOVOLOG) 1 VIAL SQ SCH ×4 (06:01→22:39)
[2021-11-20 09:42] LABS: BASO % 0.4 % (0-2.0); EOS % 2.5 % (0-4.5); HEMATOCRIT 24.2 % (32.4-45.2); MCH 29.7 pg (25.7-33.7); MONO % 11.7 % (3.8-10.2); NEUT % 72.4 % (42.8-82.8); PLATELET COUNT 344 10^3/uL (134-434); RBC 2.69 M/mm3 (3.60-5.2); WHITE BLOOD COUNT 11.5 K/mm3 (4.0-10.0)
[2021-11-20] MEDS: VANCOMYCIN 1 GM in D5W (PRE-DOCKED) 1,000 MG/250 ML IVPB SCH (10:12)
[2021-11-20] MEDS: PANTOPRAZOLE 40 MG TABLET PO SCH (10:13)
[2021-11-20] MEDS: LISINOPRIL 20 MG TABLET PO SCH (10:13)
[2021-11-20] MEDS: GABAPENTIN 300 MG CAPSULE PO SCH (10:13)
[2021-11-20] MEDS: HEPARIN NA (PORCINE) 5,000 UNITS/ML 1ML VIAL SQ SCH ×2 (10:14→22:33)
[2021-11-20 10:17] LABS: ALBUMIN 2.4 g/dl (3.4-5.0); BLOOD UREA NITROGEN 21.7 mg/dL (7-18); MAGNESIUM 2.2 mg/dL (1.8-2.4)
[2021-11-20 10:19] LABS: CREATININE 1.5 mg/dL (0.55-1.3)
[2021-11-20 10:21] LABS: BILIRUBIN,TOTAL 0.3 mg/dL (0.2-1); TOT PROT 6.3 g/dl (6.4-8.2)
[2021-11-20] MEDS: ACETAMINOPHEN 325 MG TABLET (FP) PO PRN ×2 (16:25→22:47)
[2021-11-21] MEDS ORDERED: PIPERACILLIN/TAZOBACTAM 2.25 GM VIAL IVPB ONE ×4 (02:14→21:04)
[2021-11-21] MEDS ORDERED: DEXTROSE 5%-WATER - 50 ML IVPB ONE ×4 (02:14→21:05)
[2021-11-21] MEDS: PIPERACILLIN/TAZOB 2.25 GM 2.25 GM in DEXTROSE 5%-WATER - 50 ML IVPB SCH ×4 (02:23→21:42)
[2021-11-21] MEDS: ACETAMINOPHEN 325 MG TABLET (FP) PO PRN ×2 (05:58→17:09)
[2021-11-21] MEDS: INSULIN SLIDING SCALE (NOVOLOG) 1 VIAL SQ SCH ×4 (06:02→21:53)
[2021-11-21] MEDS: LISINOPRIL 20 MG TABLET PO SCH (09:15)
[2021-11-21] MEDS: HEPARIN NA (PORCINE) 5,000 UNITS/ML 1ML VIAL SQ SCH ×2 (09:16→21:42)
[2021-11-21] MEDS: GABAPENTIN 300 MG CAPSULE PO SCH (09:16)
[2021-11-21] MEDS: amLODIPine BESYLATE 5 MG TABLET (FP) PO SCH (09:16)
[2021-11-21] MEDS: FERROUS SO4 325 MG TABLET (FP) PO SCH ×2 (09:16→21:42)
[2021-11-21] MEDS: PANTOPRAZOLE 40 MG TABLET PO SCH (09:16)
[2021-11-21 10:17] LABS: BASO % 0.3 % (0-2.0); EOS % 2.9 % (0-4.5); HEMATOCRIT 24.1 % (32.4-45.2); MCH 29.9 pg (25.7-33.7); MCHC 33.3 g/dl (32.0-36.0); MEAN CELL VOLUME 89.7 fl (80-96); MEAN PLT VOLUME 7.5 fl (7.5-11.1); MONO % 12.1 % (3.8-10.2); NEUT % 71.7 % (42.8-82.8); PLATELET COUNT 353 10^3/uL (134-434); RBC 2.69 M/mm3 (3.60-5.2); RDW 14.4 % (11.6-15.6); WHITE BLOOD COUNT 11.7 K/mm3 (4.0-10.0)
[2021-11-21 10:33] LABS: ALBUMIN 2.3 g/dl (3.4-5.0); CALCIUM 8.4 mg/dL (8.5-10.1)
[2021-11-21 10:36] LABS: BLOOD UREA NITROGEN 18.6 mg/dL (7-18)
[2021-11-21 10:37] LABS: CREATININE 1.5 mg/dL (0.55-1.3)
[2021-11-21 10:38] LABS: BILIRUBIN,TOTAL 0.4 mg/dL (0.2-1); TOT PROT 6.4 g/dl (6.4-8.2)
[2021-11-21] MEDS ORDERED: INSULIN SLIDING SCALE (NOVOLOG) 1 VIAL SQ ONE (11:56)
[2021-11-21] MEDS: ZOLPIDEM TARTRATE 5 MG TABLET PO PRN (21:55)
[2021-11-22] MEDS ORDERED: PIPERACILLIN/TAZOBACTAM 2.25 GM VIAL IVPB ONE ×4 (02:04→19:29)
[2021-11-22] MEDS ORDERED: DEXTROSE 5%-WATER - 50 ML IVPB ONE ×4 (02:04→19:29)
[2021-11-22] MEDS: PIPERACILLIN/TAZOB 2.25 GM 2.25 GM in DEXTROSE 5%-WATER - 50 ML IVPB SCH ×4 (02:25→20:54)
[2021-11-22] MEDS: INSULIN SLIDING SCALE (NOVOLOG) 1 VIAL SQ SCH ×4 (06:21→21:10)
[2021-11-22] MEDS: ACETAMINOPHEN 325 MG TABLET (FP) PO PRN ×2 (07:50→16:13)
[2021-11-22 08:34] LABS: BASO % 0.4 % (0-2.0); HEMATOCRIT 22.3 % (32.4-45.2); HEMOGLOBIN 7.5 GM/dL (10.7-15.3); LYMPH % 13.7 % (8-40); MCH 29.9 pg (25.7-33.7); MCHC 33.7 g/dl (32.0-36.0); MEAN CELL VOLUME 88.7 fl (80-96); MEAN PLT VOLUME 7.3 fl (7.5-11.1); MONO % 12.9 % (3.8-10.2); PLATELET COUNT 325 10^3/uL (134-434); RBC 2.51 M/mm3 (3.60-5.2)
[2021-11-22 08:38] LABS: ALBUMIN 2.1 g/dl (3.4-5.0); CALCIUM 8.1 mg/dL (8.5-10.1); MAGNESIUM 2.1 mg/dL (1.8-2.4)
[2021-11-22 08:41] LABS: CREATININE 1.5 mg/dL (0.55-1.3)
[2021-11-22 08:43] LABS: BILIRUBIN,TOTAL 0.2 mg/dL (0.2-1); TOT PROT 5.9 g/dl (6.4-8.2)
[2021-11-22] MEDS: FERROUS SO4 325 MG TABLET (FP) PO SCH ×2 (10:35→21:06)
[2021-11-22] MEDS: PANTOPRAZOLE 40 MG TABLET PO SCH (10:35)
[2021-11-22] MEDS: GABAPENTIN 300 MG CAPSULE PO SCH (10:35)
[2021-11-22] MEDS: HEPARIN NA (PORCINE) 5,000 UNITS/ML 1ML VIAL SQ SCH ×2 (10:42→21:06)
[2021-11-22] MEDS: amLODIPine BESYLATE 5 MG TABLET (FP) PO SCH (11:14)
[2021-11-22] MEDS: LISINOPRIL 20 MG TABLET PO SCH (11:14)
[2021-11-22] MEDS: ZOLPIDEM TARTRATE 5 MG TABLET PO PRN (21:06)
[2021-11-23] MEDS ORDERED: PIPERACILLIN/TAZOBACTAM 2.25 GM VIAL IVPB ONE ×4 (01:26→19:38)
[2021-11-23] MEDS ORDERED: DEXTROSE 5%-WATER - 50 ML IVPB ONE ×4 (01:27→19:38)
[2021-11-23] MEDS: PIPERACILLIN/TAZOB 2.25 GM 2.25 GM in DEXTROSE 5%-WATER - 50 ML IVPB SCH ×4 (03:07→21:11)
[2021-11-23] MEDS: INSULIN SLIDING SCALE (NOVOLOG) 1 VIAL SQ SCH ×4 (06:01→21:34)
[2021-11-23] MEDS: ACETAMINOPHEN 325 MG TABLET (FP) PO PRN ×2 (09:10→15:12)
[2021-11-23] MEDS: PANTOPRAZOLE 40 MG TABLET PO SCH (09:12)
[2021-11-23] MEDS: amLODIPine BESYLATE 5 MG TABLET (FP) PO SCH (09:12)
[2021-11-23] MEDS: GABAPENTIN 300 MG CAPSULE PO SCH (09:12)
[2021-11-23] MEDS: FERROUS SO4 325 MG TABLET (FP) PO SCH ×2 (09:12→21:15)
[2021-11-23] MEDS: LISINOPRIL 20 MG TABLET PO SCH (09:15)
[2021-11-23] MEDS: HEPARIN NA (PORCINE) 5,000 UNITS/ML 1ML VIAL SQ SCH ×2 (11:00→21:12)
[2021-11-23] MEDS: SODIUM CHLORIDE 0.45% 1,000 ML IV SCH (11:43)
[2021-11-23] MEDS: oxyCODONE HCL 5 MG TABLET PO PRN (15:10)
[2021-11-23] MEDS: ZOLPIDEM TARTRATE 5 MG TABLET PO PRN (21:12)
[2021-11-24] MEDS ORDERED: PIPERACILLIN/TAZOBACTAM 2.25 GM VIAL IVPB ONE ×3 (01:49→22:07)
[2021-11-24] MEDS ORDERED: DEXTROSE 5%-WATER - 50 ML IVPB ONE ×3 (01:49→22:08)
[2021-11-24] MEDS: PIPERACILLIN/TAZOB 2.25 GM 2.25 GM in DEXTROSE 5%-WATER - 50 ML IVPB SCH ×4 (02:33→22:16)
[2021-11-24] MEDS: SODIUM CHLORIDE 0.45% 1,000 ML IV SCH ×3 (02:34→22:27)
[2021-11-24] MEDS: INSULIN SLIDING SCALE (NOVOLOG) 1 VIAL SQ SCH ×4 (06:08→22:17)
[2021-11-24] MEDS: GABAPENTIN 300 MG CAPSULE PO SCH (09:25)
[2021-11-24] MEDS: HEPARIN NA (PORCINE) 5,000 UNITS/ML 1ML VIAL SQ SCH ×2 (09:25→22:17)
[2021-11-24] MEDS: PANTOPRAZOLE 40 MG TABLET PO SCH (09:25)
[2021-11-24] MEDS: FERROUS SO4 325 MG TABLET (FP) PO SCH ×2 (09:32→22:16)
[2021-11-24] MEDS: oxyCODONE HCL 5 MG TABLET PO PRN ×2 (09:35→22:17)
[2021-11-24] MEDS: ACETAMINOPHEN 325 MG TABLET (FP) PO PRN ×2 (09:36→22:16)
[2021-11-24] MEDS: amLODIPine BESYLATE 5 MG TABLET (FP) PO SCH (11:20)
[2021-11-24] MEDS: LISINOPRIL 20 MG TABLET PO SCH (11:20)
[2021-11-24] MEDS ORDERED: HEPARIN NA (PORCINE) 5,000 UNITS/ML 1ML VIAL ONE ×2 (13:27→14:55)
[2021-11-24] MEDS ORDERED: LIDOCAINE HCL 1%, 10 MG/ML (20ML VIAL) ONE (13:28)
[2021-11-24] MEDS ORDERED: MIDAZOLAM HCL 2 MG/2 ML SINGLE DOSE VIAL ONE (13:48)
[2021-11-24] MEDS ORDERED: ceFAZolin SODIUM 1 GM VIAL IVPB ONE (14:40)
[2021-11-24] MEDS ORDERED: ONDANSETRON 4 MG/2 ML VIAL IVPUSH PRN ×2 (14:42→15:44)
[2021-11-24] MEDS ORDERED: LACTATED RINGERS SOLUTION 1,000 ML IV SCH ×2 (14:45→15:44)
[2021-11-24] MEDS ORDERED: LIDOCAINE HCL 1%, 10 MG/ML (20ML VIAL) NR ONE (14:47)
[2021-11-24] MEDS ORDERED: PROPOFOL 20 ML ONE (14:48)
[2021-11-24] MEDS ORDERED: DEXAMETHASONE SOD PHOSPHATE 4 MG/1 ML VIAL ONE (14:48)
[2021-11-24] MEDS ORDERED: ceFAZolin SODIUM 1 GM VIAL ONE (14:48)
[2021-11-24] MEDS ORDERED: ZOLPIDEM TARTRATE 5 MG TABLET PO PRN (15:44)
[2021-11-24] MEDS ORDERED: ACETAMINOPHEN 325 MG TABLET (FP) PO PRN (15:44)
[2021-11-24] MEDS ORDERED: hydrALAZINE HCL 20 MG/ML VIAL IVPUSH ONE (16:48)
[2021-11-24] MEDS ORDERED: CLOPIDOGREL BISULFATE 75 MG TABLET (FP) ONE (17:00)
[2021-11-24] MEDS: CLOPIDOGREL BISULFATE 75 MG TABLET (FP) PO SCH (17:07)
[2021-11-25] MEDS ORDERED: PIPERACILLIN/TAZOBACTAM 2.25 GM VIAL IVPB ONE ×4 (01:53→20:14)
[2021-11-25] MEDS ORDERED: DEXTROSE 5%-WATER - 50 ML IVPB ONE ×4 (01:53→20:14)
[2021-11-25] MEDS: PIPERACILLIN/TAZOB 2.25 GM 2.25 GM in DEXTROSE 5%-WATER - 50 ML IVPB SCH ×4 (03:08→20:26)
[2021-11-25] MEDS: INSULIN SLIDING SCALE (NOVOLOG) 1 VIAL SQ SCH ×4 (06:23→21:35)
[2021-11-25] MEDS: oxyCODONE HCL 5 MG TABLET PO PRN ×2 (08:32→16:49)
[2021-11-25 09:56] LABS: BASO % 0.2 % (0-2.0); EOS % 0.2 % (0-4.5); HEMATOCRIT 21.5 % (32.4-45.2); LYMPH % 8.3 % (8-40); MCH 29.2 pg (25.7-33.7); MCHC 32.7 g/dl (32.0-36.0); MEAN CELL VOLUME 89.4 fl (80-96); MEAN PLT VOLUME 7.5 fl (7.5-11.1); MONO % 8.6 % (3.8-10.2); NEUT % 82.7 % (42.8-82.8); PLATELET COUNT 331 10^3/uL (134-434); RDW 14.3 % (11.6-15.6); WHITE BLOOD COUNT 13.7 K/mm3 (4.0-10.0)
[2021-11-25 10:22] LABS: CALCIUM 8.7 mg/dL (8.5-10.1)
[2021-11-25 10:23] LABS: BLOOD UREA NITROGEN 28.8 mg/dL (7-18)
[2021-11-25 10:26] LABS: CREATININE 1.6 mg/dL (0.55-1.3)
[2021-11-25] MEDS: FERROUS SO4 325 MG TABLET (FP) PO SCH ×2 (10:30→21:36)
[2021-11-25] MEDS: GABAPENTIN 300 MG CAPSULE PO SCH (10:31)
[2021-11-25] MEDS: HEPARIN NA (PORCINE) 5,000 UNITS/ML 1ML VIAL SQ SCH ×2 (10:31→22:31)
[2021-11-25] MEDS: PANTOPRAZOLE 40 MG TABLET PO SCH (10:31)
[2021-11-25] MEDS: amLODIPine BESYLATE 5 MG TABLET (FP) PO SCH (10:31)
[2021-11-25] MEDS: LISINOPRIL 20 MG TABLET PO SCH (10:31)
[2021-11-25] MEDS: CLOPIDOGREL BISULFATE 75 MG TABLET (FP) PO SCH (10:32)
[2021-11-25] MEDS: SODIUM CHLORIDE 0.45% 1,000 ML IV SCH ×2 (13:02→16:48)
[2021-11-25 15:42] VITALS: BMI 22.8
[2021-11-25] MEDS: ACETAMINOPHEN 325 MG TABLET (FP) PO PRN (16:52)
[2021-11-25] MEDS: hydrALAZINE HCL 10 MG TABLET PO SCH (21:36)
[2021-11-26] MEDS ORDERED: PIPERACILLIN/TAZOBACTAM 2.25 GM VIAL IVPB ONE ×2 (01:07→07:31)
[2021-11-26] MEDS ORDERED: DEXTROSE 5%-WATER - 50 ML IVPB ONE ×2 (01:07→07:31)
[2021-11-26] MEDS: PIPERACILLIN/TAZOB 2.25 GM 2.25 GM in DEXTROSE 5%-WATER - 50 ML IVPB SCH ×2 (02:30→10:21)
[2021-11-26] MEDS: oxyCODONE HCL 5 MG TABLET PO PRN ×2 (02:36→12:17)
[2021-11-26] MEDS: ACETAMINOPHEN 325 MG TABLET (FP) PO PRN ×2 (02:38→12:16)
[2021-11-26] MEDS: SODIUM CHLORIDE 0.45% 1,000 ML IV SCH ×2 (03:34→17:40)
[2021-11-26] MEDS: INSULIN SLIDING SCALE (NOVOLOG) 1 VIAL SQ SCH ×4 (06:10→22:58)
[2021-11-26 08:53] LABS: BASO % 0.2 % (0-2.0); EOS % 1.7 % (0-4.5); HEMATOCRIT 21.2 % (32.4-45.2); HEMOGLOBIN 7.1 GM/dL (10.7-15.3); MCH 29.7 pg (25.7-33.7); MCHC 33.3 g/dl (32.0-36.0); MEAN PLT VOLUME 7.6 fl (7.5-11.1); MONO % 12.4 % (3.8-10.2); NEUT % 72.7 % (42.8-82.8); PLATELET COUNT 349 10^3/uL (134-434); RBC 2.38 M/mm3 (3.60-5.2); RDW 14.8 % (11.6-15.6); WHITE BLOOD COUNT 12.6 K/mm3 (4.0-10.0)
[2021-11-26 09:33] LABS: ALBUMIN 1.9 g/dl (3.4-5.0)
[2021-11-26 09:34] LABS: CALCIUM 7.9 mg/dL (8.5-10.1)
[2021-11-26 09:35] LABS: BLOOD UREA NITROGEN 27.7 mg/dL (7-18)
[2021-11-26 09:36] LABS: CREATININE 1.5 mg/dL (0.55-1.3)
[2021-11-26 09:37] LABS: BILIRUBIN,TOTAL 0.2 mg/dL (0.2-1); TOT PROT 5.8 g/dl (6.4-8.2)
[2021-11-26] MEDS ORDERED: MULTIVITAMINS (DAILY MVI) TABLET (FP) PO SCH (10:00)
[2021-11-26] MEDS: MULTIVITAMINS (DAILY MVI) TABLET (FP) PO SCH (10:20)
[2021-11-26] MEDS: amLODIPine BESYLATE 5 MG TABLET (FP) PO SCH (10:20)
[2021-11-26] MEDS: hydrALAZINE HCL 10 MG TABLET PO SCH ×2 (10:20→22:47)
[2021-11-26] MEDS: HEPARIN NA (PORCINE) 5,000 UNITS/ML 1ML VIAL SQ SCH ×2 (10:20→22:46)
[2021-11-26] MEDS: GABAPENTIN 300 MG CAPSULE PO SCH (10:20)
[2021-11-26] MEDS: LISINOPRIL 20 MG TABLET PO SCH (10:20)
[2021-11-26] MEDS: FERROUS SO4 325 MG TABLET (FP) PO SCH ×2 (10:20→22:46)
[2021-11-26] MEDS: PANTOPRAZOLE 40 MG TABLET PO SCH (10:20)
[2021-11-26] MEDS ORDERED: BISACODYL 10 MG SUPP.RECT PR ONE (10:41)
[2021-11-26] MEDS ORDERED: amLODIPine BESYLATE 5 MG TABLET (FP) PO ONE (11:30)
[2021-11-26] MEDS: POLYETHYLENE GLYCOL (HEALTHYLAX) 3350 17 GM PACKET PO SCH (12:16)
[2021-11-26] MEDS: DOCUSATE SODIUM 100 MG CAPSULE (FP) PO SCH ×3 (12:17→22:47)
[2021-11-27] MEDS: DOCUSATE SODIUM 100 MG CAPSULE (FP) PO SCH ×3 (06:22→22:18)
[2021-11-27] MEDS: INSULIN SLIDING SCALE (NOVOLOG) 1 VIAL SQ SCH ×4 (06:22→22:31)
[2021-11-27] MEDS: ACETAMINOPHEN 325 MG TABLET (FP) PO PRN ×2 (08:43→22:17)
[2021-11-27] MEDS: oxyCODONE HCL 5 MG TABLET PO PRN ×2 (08:43→22:18)
[2021-11-27 09:22] LABS: BASO % 0.3 % (0-2.0); EOS % 1.4 % (0-4.5); HEMATOCRIT 21.1 % (32.4-45.2); HEMOGLOBIN 7.2 GM/dL (10.7-15.3); LYMPH % 12.1 % (8-40); MEAN CELL VOLUME 88.4 fl (80-96); MEAN PLT VOLUME 7.7 fl (7.5-11.1); MONO % 12.3 % (3.8-10.2); NEUT % 73.9 % (42.8-82.8); PLATELET COUNT 375 10^3/uL (134-434); RBC 2.39 M/mm3 (3.60-5.2); RDW 14.7 % (11.6-15.6); WHITE BLOOD COUNT 14.8 K/mm3 (4.0-10.0)
[2021-11-27 09:27] LABS: INR 1.2 (0.83-1.09); PROTHROMBIN TIME (PATIENT) 13.8 SEC (9.7-13.0)
[2021-11-27] MEDS ORDERED: DEXTROSE 5%-WATER - 50 ML IVPB ONE (09:56)
[2021-11-27] MEDS ORDERED: cefTRIAXone SODIUM 1 GM VIAL ONE (09:56)
[2021-11-27 09:57] LABS: ALBUMIN 2.1 g/dl (3.4-5.0); CALCIUM 8.3 mg/dL (8.5-10.1); MAGNESIUM 2.1 mg/dL (1.8-2.4)
[2021-11-27] MEDS: FERROUS SO4 325 MG TABLET (FP) PO SCH ×2 (09:57→22:16)
[2021-11-27] MEDS: GABAPENTIN 300 MG CAPSULE PO SCH (09:57)
[2021-11-27] MEDS: PANTOPRAZOLE 40 MG TABLET PO SCH (09:57)
[2021-11-27] MEDS: MULTIVITAMINS (DAILY MVI) TABLET (FP) PO SCH (09:57)
[2021-11-27] MEDS: LISINOPRIL 20 MG TABLET PO SCH (09:57)
[2021-11-27] MEDS: hydrALAZINE HCL 10 MG TABLET PO SCH ×2 (09:57→22:26)
[2021-11-27 09:58] LABS: BLOOD UREA NITROGEN 24.7 mg/dL (7-18)
[2021-11-27] MEDS: POLYETHYLENE GLYCOL (HEALTHYLAX) 3350 17 GM PACKET PO SCH (09:58)
[2021-11-27] MEDS ORDERED: amLODIPine BESYLATE 10 MG TABLET (FP) PO SCH (10:00)
[2021-11-27] MEDS ORDERED: CEFTRIAXONE 1 GM in DEXTROSE 5%-WATER - 50 ML IVPB SCH (10:00)
[2021-11-27 10:01] LABS: CREATININE 1.3 mg/dL (0.55-1.3)
[2021-11-27 10:02] LABS: BILIRUBIN,TOTAL 0.6 mg/dL (0.2-1); TOT PROT 5.9 g/dl (6.4-8.2)
[2021-11-27] MEDS ORDERED: oxyCODONE HCL 5 MG TABLET PO ONE (10:08)
[2021-11-27] MEDS ORDERED: ACETAMINOPHEN 1000 MG/100 ML BAG IVPB ONE (11:03)
[2021-11-27] MEDS ORDERED: SENNOSIDES 8.6MG TABLET (FP) PO PRN (11:04)
[2021-11-27] MEDS ORDERED: LIDOCAINE 5% TOPICAL PATCH TP SCH (11:15)
[2021-11-27] MEDS: SODIUM CHLORIDE 0.45% 1,000 ML IV SCH ×2 (14:30→16:29)
[2021-11-27] MEDS ORDERED: LIDOCAINE PATCH REMOVAL MC SCH (22:00)
[2021-11-28] MEDS: DOCUSATE SODIUM 100 MG CAPSULE (FP) PO SCH ×3 (05:39→21:08)
[2021-11-28] MEDS: INSULIN SLIDING SCALE (NOVOLOG) 1 VIAL SQ SCH ×4 (06:38→21:12)
[2021-11-28] MEDS ORDERED: GENTAMICIN SO4 80 MG/2 ML VIAL ONE (07:26)
[2021-11-28] MEDS ORDERED: MIDAZOLAM HCL 2 MG/2 ML SINGLE DOSE VIAL ONE (07:36)
[2021-11-28] MEDS ORDERED: BUPIVACAINE HCL/PF 0.5% (5MG/ML) 10 ML VIAL ONE (07:41)
[2021-11-28] MEDS ORDERED: BUPIVACAINE HCL/PF 0.5% (5MG/ML) 10 ML VIAL IJ ONE (07:47)
[2021-11-28] MEDS ORDERED: LIDOCAINE HCL 1%, 10 MG/ML (20ML VIAL) NR ONE (07:47)
[2021-11-28] MEDS ORDERED: THROMBIN (BOVINE) 5,000 UNIT VIAL TP ONE ×2 (07:47→07:57)
[2021-11-28] MEDS ORDERED: GENTAMICIN SO4 80 MG/2 ML VIAL IVPB ONE (07:47)
[2021-11-28] MEDS ORDERED: VANCOMYCIN 1,000 MG VIAL (RESTRICTED TO ID ONLY) IVPB ONE (08:00)
[2021-11-28] MEDS ORDERED: LIDOCAINE HCL/PF 2% SDV 5ML VIAL ONE (08:03)
[2021-11-28] MEDS ORDERED: VANCOMYCIN 1,000 MG VIAL (RESTRICTED TO ID ONLY) ONE (08:05)
[2021-11-28] MEDS ORDERED: DESFLURANE GAS 240 ML BOTTLE IH ONE (08:26)
[2021-11-28] MEDS ORDERED: PROPOFOL 20 ML ONE (08:27)
[2021-11-28] MEDS ORDERED: LACTATED RINGERS SOLUTION 1,000 ML IV SCH (09:15)
[2021-11-28] MEDS ORDERED: ACETAMINOPHEN 325 MG TABLET (FP) PO PRN (09:27)
[2021-11-28] MEDS ORDERED: SENNOSIDES 8.6MG TABLET (FP) PO PRN (09:27)
[2021-11-28] MEDS ORDERED: SODIUM CHLORIDE 0.45% 1,000 ML IV SCH (09:27)
[2021-11-28 09:48] LABS: BASO % 0.2 % (0-2.0); HEMATOCRIT 19.2 % (32.4-45.2); LYMPH % 7.5 % (8-40); MCH 29.7 pg (25.7-33.7); MCHC 33.2 g/dl (32.0-36.0); MEAN CELL VOLUME 89.4 fl (80-96); MEAN PLT VOLUME 7.4 fl (7.5-11.1); NEUT % 79.3 % (42.8-82.8); PLATELET COUNT 310 10^3/uL (134-434); RBC 2.15 M/mm3 (3.60-5.2); RDW 14.5 % (11.6-15.6); WHITE BLOOD COUNT 13.7 K/mm3 (4.0-10.0)
[2021-11-28 09:56] LABS: HEMOGLOBIN 6.4 GM/dL (10.7-15.3)
[2021-11-28] MEDS ORDERED: GABAPENTIN 300 MG CAPSULE PO SCH (10:00)
[2021-11-28] MEDS ORDERED: metFORMIN HCL 500 MG TABLET (FP) PO SCH (10:00)
[2021-11-28] MEDS ORDERED: LISINOPRIL 5 MG TABLET PO SCH (10:00)
[2021-11-28] MEDS ORDERED: LISINOPRIL 20 MG TABLET PO SCH (10:00)
[2021-11-28] MEDS ORDERED: cefTRIAXone SODIUM 1 GM VIAL ONE (10:55)
[2021-11-28] MEDS ORDERED: DEXTROSE 5%-WATER - 50 ML IVPB ONE (10:55)
[2021-11-28] MEDS: CEFTRIAXONE 1 GM in DEXTROSE 5%-WATER - 50 ML IVPB SCH (11:09)
[2021-11-28] MEDS: hydrALAZINE HCL 10 MG TABLET PO SCH ×2 (11:10→21:09)
[2021-11-28] MEDS: GABAPENTIN 100 MG CAPSULE PO SCH (11:10)
[2021-11-28] MEDS: POLYETHYLENE GLYCOL (HEALTHYLAX) 3350 17 GM PACKET PO SCH (11:10)
[2021-11-28] MEDS: CLOPIDOGREL BISULFATE 75 MG TABLET (FP) PO SCH (11:10)
[2021-11-28] MEDS: MULTIVITAMINS (DAILY MVI) TABLET (FP) PO SCH (11:10)
[2021-11-28] MEDS: LIDOCAINE 5% TOPICAL PATCH TP SCH (11:10)
[2021-11-28] MEDS: oxyCODONE HCL 5 MG TABLET PO PRN ×2 (11:11→17:08)
[2021-11-28] MEDS: FERROUS SO4 325 MG TABLET (FP) PO SCH ×2 (11:11→21:09)
[2021-11-28] MEDS: PANTOPRAZOLE 40 MG TABLET PO SCH (11:12)
[2021-11-28] MEDS: LISINOPRIL 5 MG TABLET PO SCH (11:12)
[2021-11-28] MEDS: amLODIPine BESYLATE 10 MG TABLET (FP) PO SCH (11:12)
[2021-11-28] MEDS: ASPIRIN COATED 81 MG TABLET.EC PO SCH (11:12)
[2021-11-28 11:13] LABS: BASO % 0.2 % (0-2.0); EOS % 2.3 % (0-4.5); HEMATOCRIT 20.6 % (32.4-45.2); LYMPH % 9.2 % (8-40); MCHC 32.7 g/dl (32.0-36.0); MEAN CELL VOLUME 88.8 fl (80-96); MEAN PLT VOLUME 7.5 fl (7.5-11.1); NEUT % 77.3 % (42.8-82.8); PLATELET COUNT 340 10^3/uL (134-434); RBC 2.32 M/mm3 (3.60-5.2); RDW 14.2 % (11.6-15.6)
[2021-11-28] MEDS: CHOLECALCIFEROL (VIT D3) 400 UNIT (10 MCG) TABLET PO SCH (11:14)
[2021-11-28 11:20] LABS: HEMOGLOBIN 6.7 GM/dL (10.7-15.3); INR 1.14 (0.83-1.09); PROTHROMBIN TIME (PATIENT) 13.1 SEC (9.7-13.0)
[2021-11-28 11:42] LABS: CALCIUM 8.5 mg/dL (8.5-10.1)
[2021-11-28 11:43] LABS: BLOOD UREA NITROGEN 25.4 mg/dL (7-18); CREATININE 1.2 mg/dL (0.55-1.3); MAGNESIUM 2.2 mg/dL (1.8-2.4)
[2021-11-28 11:44] LABS: BILIRUBIN,TOTAL 0.2 mg/dL (0.2-1); TOT PROT 5.6 g/dl (6.4-8.2)
[2021-11-28 17:10] LABS: HIV INTERPRETATION NEGATIVE (NEGATIVE)
[2021-11-28] MEDS ORDERED: oxyCODONE HCL 5 MG TABLET PO ONE (17:31)
[2021-11-28] MEDS ORDERED: oxyCODONE HCL 5 MG TABLET PO PRN (17:33)
[2021-11-28] MEDS: ATORVASTATIN CA 40 MG TABLET (FP) PO SCH (21:08)
[2021-11-28] MEDS: LIDOCAINE PATCH REMOVAL MC SCH (21:12)
[2021-11-28] MEDS ORDERED: ATORVASTATIN CA 10 MG TABLET (FP) PO SCH (22:00)
[2021-11-28] MEDS: ACETAMINOPHEN 325 MG TABLET (FP) PO PRN (22:23)
[2021-11-28] MEDS: ZOLPIDEM TARTRATE 5 MG TABLET PO PRN (22:27)
[2021-11-29] MEDS: DOCUSATE SODIUM 100 MG CAPSULE (FP) PO SCH ×3 (06:20→21:49)
[2021-11-29] MEDS: INSULIN SLIDING SCALE (NOVOLOG) 1 VIAL SQ SCH ×4 (06:20→21:57)
[2021-11-29 09:37] LABS: BASO % 0.3 % (0-2.0); EOS % 2.3 % (0-4.5); HEMATOCRIT 24.5 % (32.4-45.2); HEMOGLOBIN 8.3 GM/dL (10.7-15.3); LYMPH % 13.4 % (8-40); MCH 29.9 pg (25.7-33.7); MEAN CELL VOLUME 88.1 fl (80-96); MEAN PLT VOLUME 7.7 fl (7.5-11.1); MONO % 12.8 % (3.8-10.2); NEUT % 71.2 % (42.8-82.8); PLATELET COUNT 381 10^3/uL (134-434); RBC 2.79 M/mm3 (3.60-5.2); RDW 14.7 % (11.6-15.6)
[2021-11-29] MEDS ORDERED: DEXTROSE 5%-WATER - 50 ML IVPB ONE (09:37)
[2021-11-29] MEDS ORDERED: cefTRIAXone SODIUM 1 GM VIAL ONE (09:37)
[2021-11-29] MEDS: oxyCODONE HCL 5 MG TABLET PO PRN ×2 (09:43→16:08)
[2021-11-29] MEDS: ACETAMINOPHEN 325 MG TABLET (FP) PO PRN ×2 (09:44→16:09)
[2021-11-29] MEDS: PANTOPRAZOLE 40 MG TABLET PO SCH (09:44)
[2021-11-29] MEDS: ASPIRIN COATED 81 MG TABLET.EC PO SCH (09:44)
[2021-11-29] MEDS: MULTIVITAMINS (DAILY MVI) TABLET (FP) PO SCH (09:44)
[2021-11-29] MEDS: CLOPIDOGREL BISULFATE 75 MG TABLET (FP) PO SCH (09:44)
[2021-11-29] MEDS: hydrALAZINE HCL 10 MG TABLET PO SCH ×2 (09:45→21:49)
[2021-11-29] MEDS: FERROUS SO4 325 MG TABLET (FP) PO SCH ×2 (09:45→21:49)
[2021-11-29] MEDS: amLODIPine BESYLATE 10 MG TABLET (FP) PO SCH (09:45)
[2021-11-29] MEDS: GABAPENTIN 100 MG CAPSULE PO SCH ×3 (09:45→21:49)
[2021-11-29] MEDS: LISINOPRIL 5 MG TABLET PO SCH (09:45)
[2021-11-29] MEDS: POLYETHYLENE GLYCOL (HEALTHYLAX) 3350 17 GM PACKET PO SCH (09:46)
[2021-11-29] MEDS: LIDOCAINE 5% TOPICAL PATCH TP SCH (09:47)
[2021-11-29] MEDS: CEFTRIAXONE 1 GM in DEXTROSE 5%-WATER - 50 ML IVPB SCH (09:47)
[2021-11-29] MEDS: CHOLECALCIFEROL (VIT D3) 400 UNIT (10 MCG) TABLET PO SCH (09:48)
[2021-11-29] MEDS ORDERED: LISINOPRIL 20 MG TABLET PO SCH (10:00)
[2021-11-29 10:12] LABS: CALCIUM 8.6 mg/dL (8.5-10.1)
[2021-11-29 10:16] LABS: CREATININE 1.4 mg/dL (0.55-1.3)
[2021-11-29 10:17] LABS: MAGNESIUM 2.1 mg/dL (1.8-2.4)
[2021-11-29 10:18] LABS: BILIRUBIN,TOTAL 0.6 mg/dL (0.2-1); TOT PROT 5.7 g/dl (6.4-8.2)
[2021-11-29] MEDS ORDERED: BISACODYL 10 MG SUPP.RECT PR ONE (12:34)
[2021-11-29] MEDS: ATORVASTATIN CA 40 MG TABLET (FP) PO SCH (21:49)
[2021-11-29] MEDS: LIDOCAINE PATCH REMOVAL MC SCH (21:50)
[2021-11-30] MEDS: DOCUSATE SODIUM 100 MG CAPSULE (FP) PO SCH ×3 (06:11→22:42)
[2021-11-30] MEDS: GABAPENTIN 100 MG CAPSULE PO SCH ×3 (06:16→22:43)
[2021-11-30] MEDS: INSULIN SLIDING SCALE (NOVOLOG) 1 VIAL SQ SCH ×4 (06:20→22:52)
[2021-11-30 08:39] LABS: BASO % 0.6 % (0-2.0); EOS % 2.1 % (0-4.5); HEMATOCRIT 23.8 % (32.4-45.2); HEMOGLOBIN 7.8 GM/dL (10.7-15.3); LYMPH % 11.5 % (8-40); MCH 29.3 pg (25.7-33.7); MCHC 32.9 g/dl (32.0-36.0); MEAN CELL VOLUME 89.3 fl (80-96); MEAN PLT VOLUME 7.7 fl (7.5-11.1); MONO % 11.5 % (3.8-10.2); NEUT % 74.3 % (42.8-82.8); PLATELET COUNT 375 10^3/uL (134-434); RBC 2.66 M/mm3 (3.60-5.2); RDW 14.8 % (11.6-15.6); WHITE BLOOD COUNT 13.4 K/mm3 (4.0-10.0)
[2021-11-30 08:48] LABS: ALBUMIN 1.8 g/dl (3.4-5.0); BLOOD UREA NITROGEN 27.1 mg/dL (7-18); CALCIUM 8.1 mg/dL (8.5-10.1); MAGNESIUM 2.2 mg/dL (1.8-2.4)
[2021-11-30 08:51] LABS: CREATININE 1.5 mg/dL (0.55-1.3)
[2021-11-30 08:53] LABS: BILIRUBIN,TOTAL 0.3 mg/dL (0.2-1); TOT PROT 5.7 g/dl (6.4-8.2)
[2021-11-30] MEDS ORDERED: cefTRIAXone SODIUM 1 GM VIAL ONE (08:57)
[2021-11-30] MEDS ORDERED: DEXTROSE 5%-WATER - 50 ML IVPB ONE (08:58)
[2021-11-30] MEDS: oxyCODONE HCL 5 MG TABLET PO PRN (09:34)
[2021-11-30] MEDS: POLYETHYLENE GLYCOL (HEALTHYLAX) 3350 17 GM PACKET PO SCH (09:35)
[2021-11-30] MEDS: ASPIRIN COATED 81 MG TABLET.EC PO SCH (09:36)
[2021-11-30] MEDS: CLOPIDOGREL BISULFATE 75 MG TABLET (FP) PO SCH (09:36)
[2021-11-30] MEDS: amLODIPine BESYLATE 10 MG TABLET (FP) PO SCH (09:36)
[2021-11-30] MEDS: hydrALAZINE HCL 10 MG TABLET PO SCH ×2 (09:36→22:27)
[2021-11-30] MEDS: CHOLECALCIFEROL (VIT D3) 400 UNIT (10 MCG) TABLET PO SCH (09:36)
[2021-11-30] MEDS: LISINOPRIL 5 MG TABLET PO SCH (09:36)
[2021-11-30] MEDS: FERROUS SO4 325 MG TABLET (FP) PO SCH ×2 (09:36→22:42)
[2021-11-30] MEDS: PANTOPRAZOLE 40 MG TABLET PO SCH (09:36)
[2021-11-30] MEDS: MULTIVITAMINS (DAILY MVI) TABLET (FP) PO SCH (09:36)
[2021-11-30] MEDS: CEFTRIAXONE 1 GM in DEXTROSE 5%-WATER - 50 ML IVPB SCH (09:37)
[2021-11-30] MEDS: LIDOCAINE 5% TOPICAL PATCH TP SCH (09:38)
[2021-11-30] MEDS: HYDROmorphone HCL 2 MG TABLET PO PRN ×2 (11:28→17:38)
[2021-11-30] MEDS: ACETAMINOPHEN 325 MG TABLET (FP) PO SCH ×3 (11:31→22:41)
[2021-11-30] MEDS: ATORVASTATIN CA 40 MG TABLET (FP) PO SCH (22:43)
[2021-11-30] MEDS: LIDOCAINE PATCH REMOVAL MC SCH (22:43)
[2021-12-01] MEDS: ACETAMINOPHEN 325 MG TABLET (FP) PO SCH ×4 (05:25→23:27)
[2021-12-01] MEDS: GABAPENTIN 100 MG CAPSULE PO SCH ×3 (05:28→23:27)
[2021-12-01] MEDS: DOCUSATE SODIUM 100 MG CAPSULE (FP) PO SCH ×4 (05:28→23:32)
[2021-12-01] MEDS: INSULIN SLIDING SCALE (NOVOLOG) 1 VIAL SQ SCH ×4 (06:26→23:28)
[2021-12-01] MEDS: HYDROmorphone HCL 2 MG TABLET PO PRN ×2 (08:19→14:11)
[2021-12-01] MEDS ORDERED: cefTRIAXone SODIUM 1 GM VIAL ONE (09:12)
[2021-12-01] MEDS ORDERED: DEXTROSE 5%-WATER - 50 ML IVPB ONE (09:12)
[2021-12-01] MEDS: CEFTRIAXONE 1 GM in DEXTROSE 5%-WATER - 50 ML IVPB SCH (09:21)
[2021-12-01] MEDS: LIDOCAINE 5% TOPICAL PATCH TP SCH (09:22)
[2021-12-01] MEDS: hydrALAZINE HCL 10 MG TABLET PO SCH (09:22)
[2021-12-01] MEDS: PANTOPRAZOLE 40 MG TABLET PO SCH (09:22)
[2021-12-01] MEDS: CLOPIDOGREL BISULFATE 75 MG TABLET (FP) PO SCH (09:22)
[2021-12-01] MEDS: CHOLECALCIFEROL (VIT D3) 400 UNIT (10 MCG) TABLET PO SCH (09:22)
[2021-12-01] MEDS: amLODIPine BESYLATE 10 MG TABLET (FP) PO SCH (09:22)
[2021-12-01] MEDS: ASPIRIN COATED 81 MG TABLET.EC PO SCH (09:22)
[2021-12-01] MEDS: FERROUS SO4 325 MG TABLET (FP) PO SCH ×2 (09:22→23:27)
[2021-12-01] MEDS: LISINOPRIL 5 MG TABLET PO SCH ×2 (09:22→23:26)
[2021-12-01] MEDS: POLYETHYLENE GLYCOL (HEALTHYLAX) 3350 17 GM PACKET PO SCH (09:23)
[2021-12-01] MEDS: MULTIVITAMINS (DAILY MVI) TABLET (FP) PO SCH (09:23)
[2021-12-01] MEDS ORDERED: LISINOPRIL 5 MG TABLET PO SCH (09:28)
[2021-12-01 13:30] LABS: BASO % 0.4 % (0-2.0); EOS % 2.8 % (0-4.5); HEMATOCRIT 22.9 % (32.4-45.2); HEMOGLOBIN 7.6 GM/dL (10.7-15.3); LYMPH % 10.8 % (8-40); MCH 29.3 pg (25.7-33.7); MCHC 33.1 g/dl (32.0-36.0); MEAN CELL VOLUME 88.4 fl (80-96); MEAN PLT VOLUME 7.4 fl (7.5-11.1); MONO % 13.8 % (3.8-10.2); NEUT % 72.2 % (42.8-82.8); PLATELET COUNT 386 10^3/uL (134-434); RBC 2.59 M/mm3 (3.60-5.2); RDW 14.8 % (11.6-15.6); WHITE BLOOD COUNT 11.9 K/mm3 (4.0-10.0)
[2021-12-01 13:55] LABS: ALBUMIN 1.7 g/dl (3.4-5.0); BLOOD UREA NITROGEN 32.3 mg/dL (7-18); MAGNESIUM 2.4 mg/dL (1.8-2.4)
[2021-12-01 13:58] LABS: CREATININE 1.6 mg/dL (0.55-1.3)
[2021-12-01 13:59] LABS: BILIRUBIN,TOTAL 0.2 mg/dL (0.2-1); TOT PROT 5.6 g/dl (6.4-8.2)
[2021-12-01] MEDS: ATORVASTATIN CA 40 MG TABLET (FP) PO SCH (23:27)
[2021-12-01] MEDS: LIDOCAINE PATCH REMOVAL MC SCH (23:28)
[2021-12-02] MEDS: ACETAMINOPHEN 325 MG TABLET (FP) PO SCH ×4 (06:18→22:25)
[2021-12-02] MEDS: GABAPENTIN 100 MG CAPSULE PO SCH ×3 (06:18→22:24)
[2021-12-02] MEDS: INSULIN SLIDING SCALE (NOVOLOG) 1 VIAL SQ SCH ×4 (06:19→22:25)
[2021-12-02] MEDS: DOCUSATE SODIUM 100 MG CAPSULE (FP) PO SCH ×3 (06:19→22:24)
[2021-12-02] MEDS ORDERED: cefTRIAXone SODIUM 1 GM VIAL ONE (09:34)
[2021-12-02] MEDS ORDERED: DEXTROSE 5%-WATER - 50 ML IVPB ONE (09:34)
[2021-12-02] MEDS: HYDROmorphone HCL 2 MG TABLET PO PRN ×3 (09:39→22:24)
[2021-12-02] MEDS: MULTIVITAMINS (DAILY MVI) TABLET (FP) PO SCH (09:39)
[2021-12-02] MEDS: PANTOPRAZOLE 40 MG TABLET PO SCH (09:39)
[2021-12-02] MEDS: CLOPIDOGREL BISULFATE 75 MG TABLET (FP) PO SCH (09:40)
[2021-12-02] MEDS: LISINOPRIL 5 MG TABLET PO SCH ×2 (09:40→22:25)
[2021-12-02] MEDS: POLYETHYLENE GLYCOL (HEALTHYLAX) 3350 17 GM PACKET PO SCH (09:40)
[2021-12-02] MEDS: ASPIRIN COATED 81 MG TABLET.EC PO SCH (09:40)
[2021-12-02] MEDS: amLODIPine BESYLATE 10 MG TABLET (FP) PO SCH (09:40)
[2021-12-02] MEDS: FERROUS SO4 325 MG TABLET (FP) PO SCH ×2 (09:40→22:24)
[2021-12-02] MEDS: LIDOCAINE 5% TOPICAL PATCH TP SCH (09:41)
[2021-12-02] MEDS: CEFTRIAXONE 1 GM in DEXTROSE 5%-WATER - 50 ML IVPB SCH (09:41)
[2021-12-02] MEDS: CHOLECALCIFEROL (VIT D3) 400 UNIT (10 MCG) TABLET PO SCH (09:42)
[2021-12-02 10:10] LABS: BASO % 0.5 % (0-2.0); EOS % 2.5 % (0-4.5); HEMATOCRIT 24.2 % (32.4-45.2); LYMPH % 10.4 % (8-40); MCH 29.3 pg (25.7-33.7); MCHC 32.9 g/dl (32.0-36.0); MEAN CELL VOLUME 89.1 fl (80-96); MEAN PLT VOLUME 7.8 fl (7.5-11.1); NEUT % 75.6 % (42.8-82.8); PLATELET COUNT 442 10^3/uL (134-434); RBC 2.72 M/mm3 (3.60-5.2); RDW 14.7 % (11.6-15.6); WHITE BLOOD COUNT 11.9 K/mm3 (4.0-10.0)
[2021-12-02 10:30] LABS: CALCIUM 8.5 mg/dL (8.5-10.1)
[2021-12-02 10:31] LABS: ALBUMIN 1.9 g/dl (3.4-5.0); BLOOD UREA NITROGEN 37.1 mg/dL (7-18); MAGNESIUM 2.4 mg/dL (1.8-2.4)
[2021-12-02 10:34] LABS: CREATININE 1.5 mg/dL (0.55-1.3)
[2021-12-02 10:36] LABS: BILIRUBIN,TOTAL 0.1 mg/dL (0.2-1); TOT PROT 5.9 g/dl (6.4-8.2)
[2021-12-02] MEDS ORDERED: SODIUM CHLORIDE 0.45% 1,000 ML IV SCH (12:45)
[2021-12-02] MEDS: SODIUM ZIRCONIUM CYCLOSILICATE (LOKELMA) 5 GM PACKET PO SCH (16:25)
[2021-12-02] MEDS: ATORVASTATIN CA 40 MG TABLET (FP) PO SCH (22:24)
[2021-12-02] MEDS: LIDOCAINE PATCH REMOVAL MC SCH (22:25)
[2021-12-03] MEDS: DOCUSATE SODIUM 100 MG CAPSULE (FP) PO SCH ×5 (06:30→21:47)
[2021-12-03] MEDS: ACETAMINOPHEN 325 MG TABLET (FP) PO SCH ×2 (06:31→10:17)
[2021-12-03] MEDS: GABAPENTIN 100 MG CAPSULE PO SCH ×3 (06:31→21:41)
[2021-12-03] MEDS: HYDROmorphone HCL 2 MG TABLET PO PRN ×2 (06:31→13:03)
[2021-12-03] MEDS: INSULIN SLIDING SCALE (NOVOLOG) 1 VIAL SQ SCH ×4 (06:32→21:42)
[2021-12-03 08:13] LABS: BASO % 0.4 % (0-2.0); HEMATOCRIT 24.2 % (32.4-45.2); HEMOGLOBIN 7.9 GM/dL (10.7-15.3); LYMPH % 13.8 % (8-40); MCH 29.4 pg (25.7-33.7); MCHC 32.8 g/dl (32.0-36.0); MEAN CELL VOLUME 89.6 fl (80-96); MEAN PLT VOLUME 7.6 fl (7.5-11.1); MONO % 14.2 % (3.8-10.2); NEUT % 68.6 % (42.8-82.8); PLATELET COUNT 468 10^3/uL (134-434); RDW 14.7 % (11.6-15.6); WHITE BLOOD COUNT 10.8 K/mm3 (4.0-10.0)
[2021-12-03] MEDS ORDERED: DEXTROSE 5%-WATER - 50 ML IVPB ONE (09:26)
[2021-12-03] MEDS ORDERED: cefTRIAXone SODIUM 1 GM VIAL ONE (09:26)
[2021-12-03] MEDS: CEFTRIAXONE 1 GM in DEXTROSE 5%-WATER - 50 ML IVPB SCH (09:29)
[2021-12-03] MEDS: MULTIVITAMINS (DAILY MVI) TABLET (FP) PO SCH (09:30)
[2021-12-03] MEDS: POLYETHYLENE GLYCOL (HEALTHYLAX) 3350 17 GM PACKET PO SCH (09:30)
[2021-12-03] MEDS: LIDOCAINE 5% TOPICAL PATCH TP SCH (09:30)
[2021-12-03] MEDS: SODIUM ZIRCONIUM CYCLOSILICATE (LOKELMA) 5 GM PACKET PO SCH (09:30)
[2021-12-03] MEDS: amLODIPine BESYLATE 10 MG TABLET (FP) PO SCH (09:30)
[2021-12-03] MEDS: PANTOPRAZOLE 40 MG TABLET PO SCH (09:30)
[2021-12-03] MEDS: ASPIRIN COATED 81 MG TABLET.EC PO SCH (09:31)
[2021-12-03] MEDS: CHOLECALCIFEROL (VIT D3) 400 UNIT (10 MCG) TABLET PO SCH (09:31)
[2021-12-03] MEDS: LISINOPRIL 5 MG TABLET PO SCH ×2 (09:31→21:41)
[2021-12-03] MEDS: CLOPIDOGREL BISULFATE 75 MG TABLET (FP) PO SCH (09:31)
[2021-12-03] MEDS: FERROUS SO4 325 MG TABLET (FP) PO SCH ×2 (09:31→21:41)
[2021-12-03] MEDS: ACETAMINOPHEN 325 MG TABLET (FP) PO PRN (16:41)
[2021-12-03] MEDS: ATORVASTATIN CA 40 MG TABLET (FP) PO SCH (21:41)
[2021-12-03] MEDS: ZOLPIDEM TARTRATE 5 MG TABLET PO PRN (21:41)
[2021-12-03] MEDS: LIDOCAINE PATCH REMOVAL MC SCH (21:51)
[2021-12-04] MEDS: GABAPENTIN 100 MG CAPSULE PO SCH ×3 (06:29→21:47)
[2021-12-04] MEDS: INSULIN SLIDING SCALE (NOVOLOG) 1 VIAL SQ SCH ×4 (06:30→21:48)
[2021-12-04] MEDS: DOCUSATE SODIUM 100 MG CAPSULE (FP) PO SCH ×3 (06:30→21:47)
[2021-12-04 08:18] LABS: BASO % 0.4 % (0-2.0); EOS % 2.4 % (0-4.5); HEMATOCRIT 23.9 % (32.4-45.2); LYMPH % 13.2 % (8-40); MCH 29.7 pg (25.7-33.7); MCHC 33.3 g/dl (32.0-36.0); MEAN CELL VOLUME 89.3 fl (80-96); MEAN PLT VOLUME 7.8 fl (7.5-11.1); MONO % 13.2 % (3.8-10.2); NEUT % 70.8 % (42.8-82.8); PLATELET COUNT 478 10^3/uL (134-434); RBC 2.68 M/mm3 (3.60-5.2); WHITE BLOOD COUNT 9.8 K/mm3 (4.0-10.0)
[2021-12-04] MEDS ORDERED: cefTRIAXone SODIUM 1 GM VIAL ONE (09:20)
[2021-12-04] MEDS ORDERED: DEXTROSE 5%-WATER - 50 ML IVPB ONE (09:21)
[2021-12-04] MEDS: POLYETHYLENE GLYCOL (HEALTHYLAX) 3350 17 GM PACKET PO SCH (09:37)
[2021-12-04] MEDS: CEFTRIAXONE 1 GM in DEXTROSE 5%-WATER - 50 ML IVPB SCH (09:49)
[2021-12-04] MEDS: SODIUM ZIRCONIUM CYCLOSILICATE (LOKELMA) 5 GM PACKET PO SCH (09:51)
[2021-12-04] MEDS: CLOPIDOGREL BISULFATE 75 MG TABLET (FP) PO SCH (09:52)
[2021-12-04] MEDS: LISINOPRIL 5 MG TABLET PO SCH ×2 (09:52→21:47)
[2021-12-04] MEDS: MULTIVITAMINS (DAILY MVI) TABLET (FP) PO SCH (09:53)
[2021-12-04] MEDS: ASPIRIN COATED 81 MG TABLET.EC PO SCH (09:53)
[2021-12-04] MEDS: FERROUS SO4 325 MG TABLET (FP) PO SCH ×2 (09:53→21:47)
[2021-12-04] MEDS: CHOLECALCIFEROL (VIT D3) 400 UNIT (10 MCG) TABLET PO SCH (09:53)
[2021-12-04] MEDS: LIDOCAINE 5% TOPICAL PATCH TP SCH (09:53)
[2021-12-04] MEDS: amLODIPine BESYLATE 10 MG TABLET (FP) PO SCH (09:53)
[2021-12-04] MEDS: PANTOPRAZOLE 40 MG TABLET PO SCH (09:53)
[2021-12-04 13:47] LABS: CALCIUM 8.8 mg/dL (8.5-10.1)
[2021-12-04 13:51] LABS: CREATININE 1.3 mg/dL (0.55-1.3)
[2021-12-04] MEDS: HYDROmorphone HCL 2 MG TABLET PO PRN (15:19)
[2021-12-04] MEDS: ACETAMINOPHEN 325 MG TABLET (FP) PO PRN (18:50)
[2021-12-04] MEDS: ZOLPIDEM TARTRATE 5 MG TABLET PO PRN (21:47)
[2021-12-04] MEDS: ATORVASTATIN CA 40 MG TABLET (FP) PO SCH (21:47)
[2021-12-04] MEDS: LIDOCAINE PATCH REMOVAL MC SCH (21:48)
[2021-12-05] MEDS: DOCUSATE SODIUM 100 MG CAPSULE (FP) PO SCH ×3 (06:17→21:25)
[2021-12-05] MEDS: GABAPENTIN 100 MG CAPSULE PO SCH ×3 (06:19→21:24)
[2021-12-05] MEDS: INSULIN SLIDING SCALE (NOVOLOG) 1 VIAL SQ SCH ×4 (06:22→21:25)
[2021-12-05 08:54] LABS: BASO % 0.7 % (0-2.0); EOS % 2.8 % (0-4.5); HEMATOCRIT 24.6 % (32.4-45.2); HEMOGLOBIN 8.2 GM/dL (10.7-15.3); LYMPH % 14.9 % (8-40); MCH 29.8 pg (25.7-33.7); MCHC 33.5 g/dl (32.0-36.0); MEAN CELL VOLUME 88.9 fl (80-96); MEAN PLT VOLUME 7.2 fl (7.5-11.1); MONO % 13.6 % (3.8-10.2); PLATELET COUNT 495 10^3/uL (134-434); RBC 2.77 M/mm3 (3.60-5.2); RDW 14.5 % (11.6-15.6); WHITE BLOOD COUNT 10.9 K/mm3 (4.0-10.0)
[2021-12-05 09:16] LABS: CALCIUM 8.6 mg/dL (8.5-10.1)
[2021-12-05 09:17] LABS: BLOOD UREA NITROGEN 34.1 mg/dL (7-18)
[2021-12-05 09:20] LABS: CREATININE 1.4 mg/dL (0.55-1.3)
[2021-12-05] MEDS ORDERED: cefTRIAXone SODIUM 1 GM VIAL ONE (10:13)
[2021-12-05] MEDS ORDERED: DEXTROSE 5%-WATER - 50 ML IVPB ONE (10:14)
[2021-12-05] MEDS: MULTIVITAMINS (DAILY MVI) TABLET (FP) PO SCH (10:15)
[2021-12-05] MEDS: ASPIRIN COATED 81 MG TABLET.EC PO SCH (10:15)
[2021-12-05] MEDS: ACETAMINOPHEN 325 MG TABLET (FP) PO PRN (10:15)
[2021-12-05] MEDS: FERROUS SO4 325 MG TABLET (FP) PO SCH ×2 (10:15→21:24)
[2021-12-05] MEDS: LISINOPRIL 5 MG TABLET PO SCH ×2 (10:16→21:25)
[2021-12-05] MEDS: amLODIPine BESYLATE 10 MG TABLET (FP) PO SCH (10:16)
[2021-12-05] MEDS: CLOPIDOGREL BISULFATE 75 MG TABLET (FP) PO SCH (10:16)
[2021-12-05] MEDS: PANTOPRAZOLE 40 MG TABLET PO SCH (10:16)
[2021-12-05] MEDS: CEFTRIAXONE 1 GM in DEXTROSE 5%-WATER - 50 ML IVPB SCH (10:22)
[2021-12-05] MEDS: LIDOCAINE 5% TOPICAL PATCH TP SCH (10:22)
[2021-12-05] MEDS: POLYETHYLENE GLYCOL (HEALTHYLAX) 3350 17 GM PACKET PO SCH (10:22)
[2021-12-05] MEDS: CHOLECALCIFEROL (VIT D3) 400 UNIT (10 MCG) TABLET PO SCH (10:23)
[2021-12-05] MEDS: SODIUM ZIRCONIUM CYCLOSILICATE (LOKELMA) 5 GM PACKET PO SCH (10:23)
[2021-12-05] MEDS: oxyCODONE HCL 5 MG TABLET PO PRN ×2 (12:47→18:11)
[2021-12-05] MEDS: ZOLPIDEM TARTRATE 5 MG TABLET PO PRN (21:24)
[2021-12-05] MEDS: metroNIDAZOLE 250 MG TABLET PO SCH (21:24)
[2021-12-05] MEDS: ATORVASTATIN CA 40 MG TABLET (FP) PO SCH (21:24)
[2021-12-05] MEDS: LIDOCAINE PATCH REMOVAL MC SCH (21:25)
[2021-12-06] MEDS: metroNIDAZOLE 250 MG TABLET PO SCH ×3 (06:22→21:17)
[2021-12-06] MEDS: DOCUSATE SODIUM 100 MG CAPSULE (FP) PO SCH ×3 (06:22→21:17)
[2021-12-06] MEDS: GABAPENTIN 100 MG CAPSULE PO SCH ×3 (06:22→21:16)
[2021-12-06] MEDS: INSULIN SLIDING SCALE (NOVOLOG) 1 VIAL SQ SCH ×4 (06:26→21:17)
[2021-12-06] MEDS ORDERED: DEXTROSE 5%-WATER 100 ML IVPB ONE (10:09)
[2021-12-06] MEDS: CEFTRIAXONE 2 GM in DEXTROSE 5%-WATER 100 ML IVPB SCH (10:57)
[2021-12-06] MEDS: CLOPIDOGREL BISULFATE 75 MG TABLET (FP) PO SCH (10:59)
[2021-12-06] MEDS: MULTIVITAMINS (DAILY MVI) TABLET (FP) PO SCH (10:59)
[2021-12-06] MEDS: LISINOPRIL 5 MG TABLET PO SCH ×2 (11:02→21:16)
[2021-12-06] MEDS: ASPIRIN COATED 81 MG TABLET.EC PO SCH (11:02)
[2021-12-06] MEDS: PANTOPRAZOLE 40 MG TABLET PO SCH (11:02)
[2021-12-06] MEDS: amLODIPine BESYLATE 10 MG TABLET (FP) PO SCH (11:02)
[2021-12-06] MEDS: POLYETHYLENE GLYCOL (HEALTHYLAX) 3350 17 GM PACKET PO SCH (11:03)
[2021-12-06] MEDS: FERROUS SO4 325 MG TABLET (FP) PO SCH ×2 (11:03→21:17)
[2021-12-06] MEDS: LIDOCAINE 5% TOPICAL PATCH TP SCH (11:04)
[2021-12-06] MEDS: CHOLECALCIFEROL (VIT D3) 400 UNIT (10 MCG) TABLET PO SCH (11:04)
[2021-12-06] MEDS: oxyCODONE HCL 5 MG TABLET PO PRN ×2 (12:40→21:21)
[2021-12-06 12:53] LABS: BASO % 0.5 % (0-2.0); EOS % 2.9 % (0-4.5); HEMATOCRIT 24.5 % (32.4-45.2); LYMPH % 14.9 % (8-40); MCH 29.1 pg (25.7-33.7); MCHC 32.5 g/dl (32.0-36.0); MEAN CELL VOLUME 89.4 fl (80-96); MEAN PLT VOLUME 7.4 fl (7.5-11.1); MONO % 14.1 % (3.8-10.2); NEUT % 67.6 % (42.8-82.8); PLATELET COUNT 484 10^3/uL (134-434); RBC 2.74 M/mm3 (3.60-5.2); RDW 14.8 % (11.6-15.6); WHITE BLOOD COUNT 11.1 K/mm3 (4.0-10.0)
[2021-12-06 13:13] LABS: CALCIUM 8.7 mg/dL (8.5-10.1)
[2021-12-06 13:14] LABS: ALBUMIN 1.9 g/dl (3.4-5.0); BLOOD UREA NITROGEN 35.7 mg/dL (7-18); MAGNESIUM 2.5 mg/dL (1.8-2.4)
[2021-12-06 13:17] LABS: CREATININE 1.5 mg/dL (0.55-1.3)
[2021-12-06 13:19] LABS: BILIRUBIN,TOTAL 0.2 mg/dL (0.2-1)
[2021-12-06] MEDS: SODIUM ZIRCONIUM CYCLOSILICATE (LOKELMA) 5 GM PACKET PO SCH ×2 (14:05→17:31)
[2021-12-06] MEDS: ACETAMINOPHEN 325 MG TABLET (FP) PO PRN (15:15)
[2021-12-06] MEDS: ZOLPIDEM TARTRATE 5 MG TABLET PO PRN (21:16)
[2021-12-06] MEDS: ATORVASTATIN CA 40 MG TABLET (FP) PO SCH (21:16)
[2021-12-06] MEDS: LIDOCAINE PATCH REMOVAL MC SCH (21:17)
[2021-12-07] MEDS: INSULIN SLIDING SCALE (NOVOLOG) 1 VIAL SQ SCH ×4 (06:16→21:07)
[2021-12-07] MEDS: metroNIDAZOLE 250 MG TABLET PO SCH ×3 (06:16→21:06)
[2021-12-07] MEDS: DOCUSATE SODIUM 100 MG CAPSULE (FP) PO SCH ×3 (06:16→21:05)
[2021-12-07] MEDS: GABAPENTIN 100 MG CAPSULE PO SCH ×3 (06:16→21:06)
[2021-12-07] MEDS: oxyCODONE HCL 5 MG TABLET PO PRN ×3 (06:21→21:06)
[2021-12-07] MEDS ORDERED: DEXTROSE 5%-WATER 100 ML IVPB ONE (09:23)
[2021-12-07] MEDS: CEFTRIAXONE 2 GM in DEXTROSE 5%-WATER 100 ML IVPB SCH (09:51)
[2021-12-07] MEDS: SODIUM ZIRCONIUM CYCLOSILICATE (LOKELMA) 5 GM PACKET PO SCH (09:52)
[2021-12-07] MEDS: FERROUS SO4 325 MG TABLET (FP) PO SCH ×2 (09:54→21:06)
[2021-12-07] MEDS: ACETAMINOPHEN 325 MG TABLET (FP) PO PRN (09:54)
[2021-12-07] MEDS: LISINOPRIL 5 MG TABLET PO SCH ×2 (09:54→21:06)
[2021-12-07] MEDS: MULTIVITAMINS (DAILY MVI) TABLET (FP) PO SCH (09:54)
[2021-12-07] MEDS: amLODIPine BESYLATE 10 MG TABLET (FP) PO SCH (09:55)
[2021-12-07] MEDS: POLYETHYLENE GLYCOL (HEALTHYLAX) 3350 17 GM PACKET PO SCH (09:56)
[2021-12-07] MEDS: LIDOCAINE 5% TOPICAL PATCH TP SCH (09:56)
[2021-12-07] MEDS: CHOLECALCIFEROL (VIT D3) 400 UNIT (10 MCG) TABLET PO SCH (09:56)
[2021-12-07] MEDS: PANTOPRAZOLE 40 MG TABLET PO SCH (09:58)
[2021-12-07 10:01] LABS: BASO % 0.3 % (0-2.0); EOS % 2.9 % (0-4.5); HEMATOCRIT 22.5 % (32.4-45.2); HEMOGLOBIN 7.4 GM/dL (10.7-15.3); LYMPH % 15.7 % (8-40); MCH 29.4 pg (25.7-33.7); MCHC 32.8 g/dl (32.0-36.0); MEAN CELL VOLUME 89.5 fl (80-96); MEAN PLT VOLUME 7.7 fl (7.5-11.1); MONO % 14.2 % (3.8-10.2); NEUT % 66.9 % (42.8-82.8); PLATELET COUNT 493 10^3/uL (134-434); RBC 2.52 M/mm3 (3.60-5.2); RDW 14.6 % (11.6-15.6); WHITE BLOOD COUNT 10.8 K/mm3 (4.0-10.0)
[2021-12-07 10:06] LABS: CALCIUM 8.4 mg/dL (8.5-10.1)
[2021-12-07 10:07] LABS: ALBUMIN 1.8 g/dl (3.4-5.0); BLOOD UREA NITROGEN 35.3 mg/dL (7-18); MAGNESIUM 2.5 mg/dL (1.8-2.4)
[2021-12-07 10:10] LABS: CREATININE 1.5 mg/dL (0.55-1.3)
[2021-12-07 10:11] LABS: BILIRUBIN,TOTAL 0.5 mg/dL (0.2-1)
[2021-12-07 10:12] LABS: TOT PROT 5.6 g/dl (6.4-8.2)
[2021-12-07] MEDS: ATORVASTATIN CA 40 MG TABLET (FP) PO SCH (21:06)
[2021-12-07] MEDS: ZOLPIDEM TARTRATE 5 MG TABLET PO PRN (21:06)
[2021-12-07] MEDS: LIDOCAINE PATCH REMOVAL MC SCH (21:07)
[2021-12-08] MEDS: GABAPENTIN 100 MG CAPSULE PO SCH ×3 (06:19→21:26)
[2021-12-08] MEDS: metroNIDAZOLE 250 MG TABLET PO SCH ×3 (06:19→21:25)
[2021-12-08] MEDS: oxyCODONE HCL 5 MG TABLET PO PRN ×3 (06:20→21:26)
[2021-12-08] MEDS: DOCUSATE SODIUM 100 MG CAPSULE (FP) PO SCH ×4 (06:20→21:41)
[2021-12-08] MEDS: INSULIN SLIDING SCALE (NOVOLOG) 1 VIAL SQ SCH ×4 (08:04→21:40)
[2021-12-08 09:44] LABS: BASO % 0.5 % (0-2.0); EOS % 3.1 % (0-4.5); HEMATOCRIT 22.9 % (32.4-45.2); HEMOGLOBIN 7.6 GM/dL (10.7-15.3); LYMPH % 12.9 % (8-40); MCH 29.4 pg (25.7-33.7); MEAN CELL VOLUME 89.2 fl (80-96); MEAN PLT VOLUME 7.9 fl (7.5-11.1); MONO % 12.7 % (3.8-10.2); NEUT % 70.8 % (42.8-82.8); PLATELET COUNT 491 10^3/uL (134-434); RBC 2.57 M/mm3 (3.60-5.2); RDW 14.4 % (11.6-15.6); WHITE BLOOD COUNT 10.6 K/mm3 (4.0-10.0)
[2021-12-08 09:46] LABS: INR 1.28 (0.83-1.09); PROTHROMBIN TIME (PATIENT) 14.8 SEC (9.7-13.0)
[2021-12-08 09:57] LABS: CALCIUM 8.2 mg/dL (8.5-10.1)
[2021-12-08 09:58] LABS: ALBUMIN 1.8 g/dl (3.4-5.0); BLOOD UREA NITROGEN 35.8 mg/dL (7-18); MAGNESIUM 2.6 mg/dL (1.8-2.4)
[2021-12-08 10:01] LABS: CREATININE 1.5 mg/dL (0.55-1.3)
[2021-12-08 10:02] LABS: BILIRUBIN,TOTAL 0.4 mg/dL (0.2-1); TOT PROT 5.8 g/dl (6.4-8.2)
[2021-12-08] MEDS ORDERED: DEXTROSE 5%-WATER 100 ML IVPB ONE (13:48)
[2021-12-08] MEDS: CEFTRIAXONE 2 GM in DEXTROSE 5%-WATER 100 ML IVPB SCH (14:00)
[2021-12-08] MEDS: LIDOCAINE 5% TOPICAL PATCH TP SCH (14:02)
[2021-12-08] MEDS ORDERED: ONDANSETRON 4 MG/2 ML VIAL IVPB ONE (14:22)
[2021-12-08] MEDS: LISINOPRIL 5 MG TABLET PO SCH ×2 (15:06→21:25)
[2021-12-08] MEDS: CHOLECALCIFEROL (VIT D3) 400 UNIT (10 MCG) TABLET PO SCH (15:06)
[2021-12-08] MEDS: PANTOPRAZOLE 40 MG TABLET PO SCH (15:06)
[2021-12-08] MEDS: amLODIPine BESYLATE 10 MG TABLET (FP) PO SCH (15:08)
[2021-12-08] MEDS: POLYETHYLENE GLYCOL (HEALTHYLAX) 3350 17 GM PACKET PO SCH (15:08)
[2021-12-08] MEDS: MULTIVITAMINS (DAILY MVI) TABLET (FP) PO SCH (15:08)
[2021-12-08] MEDS: FERROUS SO4 325 MG TABLET (FP) PO SCH ×2 (15:08→21:25)
[2021-12-08] MEDS: SODIUM ZIRCONIUM CYCLOSILICATE (LOKELMA) 5 GM PACKET PO SCH ×2 (16:00→17:34)
[2021-12-08] MEDS: ATORVASTATIN CA 40 MG TABLET (FP) PO SCH (21:25)
[2021-12-08] MEDS: LIDOCAINE PATCH REMOVAL MC SCH (21:40)
[2021-12-08] MEDS: ZOLPIDEM TARTRATE 5 MG TABLET PO PRN (21:40)
[2021-12-09] MEDS: GABAPENTIN 100 MG CAPSULE PO SCH (05:37)
[2021-12-09] MEDS: DOCUSATE SODIUM 100 MG CAPSULE (FP) PO SCH ×2 (05:37→06:11)
[2021-12-09] MEDS: metroNIDAZOLE 250 MG TABLET PO SCH (05:37)
[2021-12-09] MEDS: INSULIN SLIDING SCALE (NOVOLOG) 1 VIAL SQ SCH ×2 (06:11→12:55)
[2021-12-09 06:41] VITALS: PULSE 71; TEMP 98.2
[2021-12-09] MEDS ORDERED: DEXTROSE 5%-WATER 100 ML IVPB ONE (08:55)
[2021-12-09 08:58] LABS: BASO % 0.6 % (0-2.0); EOS % 3.6 % (0-4.5); HEMATOCRIT 21.4 % (32.4-45.2); HEMOGLOBIN 7.2 GM/dL (10.7-15.3); MCH 29.7 pg (25.7-33.7); MCHC 33.5 g/dl (32.0-36.0); MEAN CELL VOLUME 88.5 fl (80-96); MEAN PLT VOLUME 7.9 fl (7.5-11.1); MONO % 14.3 % (3.8-10.2); NEUT % 63.5 % (42.8-82.8); PLATELET COUNT 467 10^3/uL (134-434); RBC 2.42 M/mm3 (3.60-5.2); RDW 14.8 % (11.6-15.6); WHITE BLOOD COUNT 9.1 K/mm3 (4.0-10.0)
[2021-12-09 09:16] LABS: CHLORIDE 114 mmol/L (98-107); SODIUM 143 mmol/L (136-145)
[2021-12-09] MEDS: CEFTRIAXONE 2 GM in DEXTROSE 5%-WATER 100 ML IVPB SCH (09:16)
[2021-12-09 09:17] LABS: GLUCOSE,RANDOM 95 mg/dL (74-106)
[2021-12-09] MEDS: LIDOCAINE 5% TOPICAL PATCH TP SCH (09:17)
[2021-12-09 09:19] LABS: ANION GAP 4 MMOL/L (8-16); BLOOD UREA NITROGEN 33.6 mg/dL (7-18); CO2 25 mmol/L (21-32); MAGNESIUM 2.5 mg/dL (1.8-2.4)
[2021-12-09] MEDS: amLODIPine BESYLATE 10 MG TABLET (FP) PO SCH (09:19)
[2021-12-09] MEDS: LISINOPRIL 5 MG TABLET PO SCH (09:19)
[2021-12-09] MEDS: FERROUS SO4 325 MG TABLET (FP) PO SCH (09:19)
[2021-12-09] MEDS: CHOLECALCIFEROL (VIT D3) 400 UNIT (10 MCG) TABLET PO SCH (09:19)
[2021-12-09] MEDS: MULTIVITAMINS (DAILY MVI) TABLET (FP) PO SCH (09:19)
[2021-12-09] MEDS: PANTOPRAZOLE 40 MG TABLET PO SCH (09:19)
[2021-12-09 09:20] LABS: ALBUMIN 1.7 g/dl (3.4-5.0)
[2021-12-09] MEDS: POLYETHYLENE GLYCOL (HEALTHYLAX) 3350 17 GM PACKET PO SCH (09:20)
[2021-12-09] MEDS: CLOPIDOGREL BISULFATE 75 MG TABLET (FP) PO SCH (09:20)
[2021-12-09] MEDS: oxyCODONE HCL 5 MG TABLET PO PRN (09:20)
[2021-12-09] MEDS: ASPIRIN COATED 81 MG TABLET.EC PO SCH (09:20)
[2021-12-09 09:25] LABS: CREATININE 1.4 mg/dL (0.55-1.3); SGOT/AST 14 U/L (15-37); TOT PROT 5.4 g/dl (6.4-8.2)
[2021-12-09 09:27] LABS: ALK PHOS 140 U/L (45-117); BILIRUBIN,TOTAL 0.1 mg/dL (0.2-1); SGPT/ALT < 6 U/L (13-61)
[2021-12-09 09:43] VITALS: BP 137/58
[2021-12-09] MEDS: SODIUM ZIRCONIUM CYCLOSILICATE (LOKELMA) 5 GM PACKET PO SCH (12:00)
== END 2021-12-09 13:25 | disposition home or self-care (01) | DRG 240 ==
LOC: JER 14:23 → JERBED 20:19 → J5S 11-19 03:12
PROVIDERS: ADMIT Hospitalist; ATTEND Nurse Practitioner Family
PROC: 30233N1 Transfusion of Nonautologous Red Blood Cells into Peripheral Vein, Percutaneous Approach (ICD-10-PCS; 2021-11-18)
PROC: 047L3DZ Dilation of Left Femoral Artery with Intraluminal Device, Percutaneous Approach (ICD-10-PCS; 2021-11-24)
PROC: 3E05317 Introduction of Other Thrombolytic into Peripheral Artery, Percutaneous Approach (ICD-10-PCS; 2021-11-24)
PROC: B41DZZZ Fluoroscopy of Aorta and Bilateral Lower Extremity Arteries (ICD-10-PCS; 2021-11-24)
PROC: 0Y6N0ZF Detachment at Left Foot, Partial 5th Ray, Open Approach (ICD-10-PCS; 2021-11-28)
PROC: 0Y6N0ZD Detachment at Left Foot, Partial 4th Ray, Open Approach (ICD-10-PCS; 2021-11-28)
PROC: 0Y6N0ZC Detachment at Left Foot, Partial 3rd Ray, Open Approach (ICD-10-PCS; principal; 2021-11-28 07:30)
PROC: 0JH63XZ Insertion of Tunneled Vascular Access Device into Chest Subcutaneous Tissue and Fascia, Percutaneous Approach (ICD-10-PCS; 2021-12-08)
PROC: 05HM33Z Insertion of Infusion Device into Right Internal Jugular Vein, Percutaneous Approach (ICD-10-PCS; 2021-12-08)
PROC: B513ZZA Fluoroscopy of Right Jugular Veins, Guidance (ICD-10-PCS; 2021-12-08)
DX: E11.52 Type 2 diabetes mellitus with diabetic peripheral angiopathy with gangrene (principal); I96 Gangrene, not elsewhere classified; M86.172 Other acute osteomyelitis, left ankle and foot; S37.019A Minor contusion of unspecified kidney, initial encounter; L03.116 Cellulitis of left lower limb; E11.69 Type 2 diabetes mellitus with other specified complication; D64.9 Anemia, unspecified; E11.21 Type 2 diabetes mellitus with diabetic nephropathy; N18.9 Chronic kidney disease, unspecified; I12.9 Hypertensive chronic kidney disease with stage 1 through stage 4 chronic kidney disease, or unspecified chronic kidney disease; E87.5 Hyperkalemia; D72.829 Elevated white blood cell count, unspecified; X58.XXXA Exposure to other specified factors, initial encounter; Y93.9 Activity, unspecified; Y92.89 Other specified places as the place of occurrence of the external cause; Y99.9 Unspecified external cause status; E78.5 Hyperlipidemia, unspecified
CPT/HCPCS: 36415; 36430; 36511; 36558; 73630-TC-LT; 73719-LT; 76000-TC-FY; 76775-TC; 77001-TC-FY; 80048; 80053; 82272; 82962; 83036; 83540; 83550; 83735; 84460; 85025; 85610; 85651; 85730; 86140; 86803; 86850; 86900; 86901; 86922; 87040; 87070; 87076; 87186; 87205; 87340; 87389; 88304-TC; 88305-TC; 88311-TC; 90670; 90686; 93005; 93010; 93926-TC; 94760; 97116-GP; 97162-GP; 99285-25; C1751; C9803-CS; G0008; G0009; J1644; P9016; U0003; U0005

== ENCOUNTER 2021-12-11 13:23 | Day surgery (SDC) | payer OTHER ==
[2021-12-11] MEDS ORDERED: DEXTROSE 5%-WATER 100 ML IVPB ONE (13:52)
[2021-12-11] MEDS ORDERED: CEFTRIAXONE 2 GM in DEXTROSE 5%-WATER 100 ML IVPB ONE (14:00)
[2021-12-11 14:41] VITALS: BP 130/63; PULSE 73; TEMP 98.3
== END 2021-12-11 15:30 | disposition home or self-care (01) ==
LOC: JINFUSION 13:23 → J7W 13:28 → JINFUSION 15:30
PROVIDERS: ATTEND Internal Medicine Infectious Disease
DX: E11.52 Type 2 diabetes mellitus with diabetic peripheral angiopathy with gangrene (principal); I96 Gangrene, not elsewhere classified; M86.172 Other acute osteomyelitis, left ankle and foot
CPT/HCPCS: 96365

== ENCOUNTER 2021-12-12 11:59 | Day surgery (SDC) | payer OTHER ==
[~2021-12-12 11:59] MED LIST: CEFTRIAXONE 2 GM in DEXTROSE 5%-WATER 100 ML IVPB ONE
[2021-12-12] MEDS ORDERED: DEXTROSE 5%-WATER 100 ML IVPB ONE (12:18)
[2021-12-12 12:33] VITALS: BP 125/74; PULSE 84; TEMP 98.4
== END 2021-12-12 13:00 | disposition home or self-care (01) ==
LOC: JINFUSION 11:59 → J7W 12:00 → JINFUSION 13:00
PROVIDERS: ATTEND Internal Medicine Infectious Disease
DX: E11.52 Type 2 diabetes mellitus with diabetic peripheral angiopathy with gangrene (principal); I96 Gangrene, not elsewhere classified; M86.172 Other acute osteomyelitis, left ankle and foot
CPT/HCPCS: 96365

== ENCOUNTER 2021-12-13 11:38 | Day surgery (SDC) | payer OTHER ==
[2021-12-13] MEDS ORDERED: DEXTROSE 5%-WATER 100 ML IVPB ONE (11:48)
[2021-12-13] MEDS ORDERED: CEFTRIAXONE 2 GM in DEXTROSE 5%-WATER 100 ML IVPB ONE (12:00)
[2021-12-13 15:37] VITALS: BP 130/69; PULSE 74; TEMP 98.2
== END 2021-12-13 12:45 | disposition home or self-care (01) ==
LOC: J7W 11:38 → JINFUSION 11:38
PROVIDERS: ATTEND Internal Medicine Infectious Disease
DX: E11.52 Type 2 diabetes mellitus with diabetic peripheral angiopathy with gangrene (principal); I96 Gangrene, not elsewhere classified; M86.172 Other acute osteomyelitis, left ankle and foot
CPT/HCPCS: 96365

== ENCOUNTER 2021-12-14 15:06 | Day surgery (SDC) | payer OTHER ==
[~2021-12-14 15:06] MED LIST changes: -CEFTRIAXONE 2 GM in DEXTROSE 5%-WATER 100 ML IVPB ONE; +CEFTRIAXONE 2 GM in DEXTROSE 5%-WATER 100 ML IVPB SCH
[2021-12-14] MEDS ORDERED: DEXTROSE 5%-WATER 100 ML IVPB ONE (15:19)
[2021-12-14 15:44] VITALS: TEMP 98.2
[2021-12-14 15:53] VITALS: BP 143/62; PULSE 72
== END 2021-12-14 16:10 | disposition home or self-care (01) ==
LOC: JINFUSION 15:06 → J7W 15:07 → JINFUSION 16:10
PROVIDERS: ATTEND Internal Medicine Infectious Disease
DX: E11.52 Type 2 diabetes mellitus with diabetic peripheral angiopathy with gangrene (principal); I96 Gangrene, not elsewhere classified; M86.172 Other acute osteomyelitis, left ankle and foot
CPT/HCPCS: 96365

== ENCOUNTER 2021-12-15 10:36 | Day surgery (SDC) | payer OTHER ==
[~2021-12-15 10:36] MED LIST changes: +CEFTRIAXONE 2 GM in DEXTROSE 5%-WATER 100 ML IVPB ONE; -CEFTRIAXONE 2 GM in DEXTROSE 5%-WATER 100 ML IVPB SCH
[2021-12-15] MEDS ORDERED: DEXTROSE 5%-WATER 100 ML IVPB ONE (11:25)
[2021-12-15 15:55] VITALS: BP 136/71; PULSE 75; TEMP 98.1
== END 2021-12-15 14:30 | disposition home or self-care (01) ==
LOC: JINFUSION 10:36 → J7W 10:37 → JINFUSION 14:30
PROVIDERS: ATTEND Internal Medicine Infectious Disease
DX: E11.52 Type 2 diabetes mellitus with diabetic peripheral angiopathy with gangrene (principal); I96 Gangrene, not elsewhere classified; M86.172 Other acute osteomyelitis, left ankle and foot
CPT/HCPCS: 96365

== ENCOUNTER 2021-12-16 08:43 | Day surgery (SDC) | payer OTHER ==
[2021-12-16] MEDS ORDERED: CEFTRIAXONE 2 GM in DEXTROSE 5%-WATER 100 ML IVPB ONE (09:00)
[2021-12-16] MEDS ORDERED: DEXTROSE 5%-WATER 100 ML IVPB ONE (09:13)
[2021-12-16 09:26] VITALS: BP 144/58; PULSE 70; TEMP 98.7
== END 2021-12-16 10:00 | disposition home or self-care (01) ==
LOC: JINFUSION 08:43 → J7W 08:44 → JINFUSION 10:00
PROVIDERS: ATTEND Internal Medicine Infectious Disease
DX: E11.52 Type 2 diabetes mellitus with diabetic peripheral angiopathy with gangrene (principal); I96 Gangrene, not elsewhere classified; M86.172 Other acute osteomyelitis, left ankle and foot
CPT/HCPCS: 96365

== ENCOUNTER 2021-12-17 09:56 | Day surgery (SDC) | payer OTHER ==
[2021-12-17] MEDS ORDERED: CEFTRIAXONE 2 GM in SODIUM CHLORIDE 100 ML IVPB ONE (10:30)
[2021-12-17] MEDS ORDERED: CEFTRIAXONE 2 GM in DEXTROSE 5%-WATER 100 ML IVPB ONE (13:15)
[2021-12-17 13:18] VITALS: BP 134/59; PULSE 68; TEMP 97.9
== END 2021-12-17 13:55 | disposition home or self-care (01) ==
LOC: J7W 09:56 → JINFUSION 09:56
PROVIDERS: ATTEND Internal Medicine Infectious Disease
DX: E11.52 Type 2 diabetes mellitus with diabetic peripheral angiopathy with gangrene (principal); I96 Gangrene, not elsewhere classified; M86.172 Other acute osteomyelitis, left ankle and foot
CPT/HCPCS: 96365

== ENCOUNTER 2021-12-18 08:57 | Day surgery (SDC) | payer OTHER ==
[2021-12-18] MEDS ORDERED: CEFTRIAXONE 2 GM in DEXTROSE 5%-WATER 100 ML IVPB ONE (09:15)
[2021-12-18] MEDS ORDERED: DEXTROSE 5%-WATER 100 ML IVPB ONE (09:17)
[2021-12-18 09:50] VITALS: BP 135/62; PULSE 69
== END 2021-12-18 10:35 | disposition home or self-care (01) ==
LOC: JINFUSION 08:57 → J7W 08:58 → JINFUSION 10:35
PROVIDERS: ATTEND Internal Medicine Infectious Disease
DX: E11.52 Type 2 diabetes mellitus with diabetic peripheral angiopathy with gangrene (principal); I96 Gangrene, not elsewhere classified; M86.172 Other acute osteomyelitis, left ankle and foot
CPT/HCPCS: 96365

== ENCOUNTER 2021-12-19 09:24 | Day surgery (SDC) | payer OTHER ==
[2021-12-19] MEDS ORDERED: DEXTROSE 5%-WATER 100 ML IVPB ONE (09:30)
[2021-12-19 09:58] VITALS: BP 143/62; PULSE 70; TEMP 98.3
== END 2021-12-19 09:59 | disposition home or self-care (01) ==
LOC: JINFUSION 09:24 → J7W 09:25 → JINFUSION 09:59
PROVIDERS: ATTEND Internal Medicine Infectious Disease
DX: E11.52 Type 2 diabetes mellitus with diabetic peripheral angiopathy with gangrene (principal); I96 Gangrene, not elsewhere classified; M86.172 Other acute osteomyelitis, left ankle and foot
CPT/HCPCS: 96365

== ENCOUNTER 2021-12-20 12:01 | Day surgery (SDC) | payer OTHER ==
[2021-12-20] MEDS ORDERED: CEFTRIAXONE 2 GM in DEXTROSE 5%-WATER 100 ML IVPB ONE (12:15)
[2021-12-20 12:58] VITALS: BP 122/74; PULSE 72; TEMP 98.1
== END 2021-12-20 13:02 | disposition home or self-care (01) ==
LOC: JINFUSION 12:01 → J7W 12:01 → JINFUSION 13:02
PROVIDERS: ATTEND Internal Medicine Infectious Disease
DX: E11.52 Type 2 diabetes mellitus with diabetic peripheral angiopathy with gangrene (principal); I96 Gangrene, not elsewhere classified; M86.172 Other acute osteomyelitis, left ankle and foot
CPT/HCPCS: 96365

== ENCOUNTER 2021-12-21 13:50 | Day surgery (SDC) | payer OTHER ==
[2021-12-21] MEDS ORDERED: CEFTRIAXONE 2 GM in DEXTROSE 5%-WATER 100 ML IVPB ONE (14:00)
[2021-12-21] MEDS ORDERED: DEXTROSE 5%-WATER 100 ML IVPB ONE (14:05)
[2021-12-21 17:55] VITALS: BP 136/70; PULSE 73; TEMP 98
== END 2021-12-21 14:50 | disposition home or self-care (01) ==
LOC: JINFUSION 13:50 → J7W 13:51 → JINFUSION 14:50
PROVIDERS: ATTEND Internal Medicine Infectious Disease
DX: E11.52 Type 2 diabetes mellitus with diabetic peripheral angiopathy with gangrene (principal); I96 Gangrene, not elsewhere classified; M86.172 Other acute osteomyelitis, left ankle and foot
CPT/HCPCS: 96365

== ENCOUNTER 2021-12-22 13:54 | Day surgery (SDC) | payer OTHER ==
[~2021-12-22 13:54] MED LIST changes: -CEFTRIAXONE 2 GM in DEXTROSE 5%-WATER 100 ML IVPB ONE; +CEFTRIAXONE 2 GM in DEXTROSE 5%-WATER 100 ML IVPB SCH
[2021-12-22] MEDS ORDERED: DEXTROSE 5%-WATER 100 ML IVPB ONE (14:02)
== END 2021-12-22 15:21 | disposition home or self-care (01) ==
LOC: JINFUSION 13:54 → J7W 13:55 → JINFUSION 15:21
PROVIDERS: ATTEND Internal Medicine Infectious Disease
PROC: 3E033GC Introduction of Other Therapeutic Substance into Peripheral Vein, Percutaneous Approach (ICD-10-PCS; principal; 2021-12-22)
DX: E11.52 Type 2 diabetes mellitus with diabetic peripheral angiopathy with gangrene (principal); I96 Gangrene, not elsewhere classified; M86.172 Other acute osteomyelitis, left ankle and foot
CPT/HCPCS: 96365

== ENCOUNTER 2021-12-23 15:21 | Day surgery (SDC) | payer OTHER ==
[~2021-12-23 15:21] MED LIST changes: +CEFTRIAXONE 2 GM in DEXTROSE 5%-WATER 100 ML IVPB ONE; -CEFTRIAXONE 2 GM in DEXTROSE 5%-WATER 100 ML IVPB SCH
[2021-12-23] MEDS ORDERED: DEXTROSE 5%-WATER 100 ML IVPB ONE (15:25)
== END 2021-12-23 15:55 | disposition home or self-care (01) ==
LOC: JINFUSION 15:21 → J7W 15:22 → JINFUSION 15:55
PROVIDERS: ATTEND Internal Medicine Infectious Disease
DX: E11.52 Type 2 diabetes mellitus with diabetic peripheral angiopathy with gangrene (principal); I96 Gangrene, not elsewhere classified; M86.172 Other acute osteomyelitis, left ankle and foot
CPT/HCPCS: 96365

== ENCOUNTER 2021-12-24 13:51 | Inpatient (IN) | payer OTHER ==
[2021-12-24 16:50] LABS: BASO % 0.5 % (0-2.0); EOS % 2.2 % (0-4.5); HEMATOCRIT 24.5 % (32.4-45.2); HEMOGLOBIN 7.7 GM/dL (10.7-15.3); LYMPH % 8.5 % (8-40); MCHC 31.6 g/dl (32.0-36.0); MEAN CELL VOLUME 91.7 fl (80-96); MEAN PLT VOLUME 8.7 fl (7.5-11.1); MONO % 13.4 % (3.8-10.2); NEUT % 75.4 % (42.8-82.8); PLATELET COUNT 203 10^3/uL (134-434); RBC 2.67 M/mm3 (3.60-5.2); RDW 17.2 % (11.6-15.6)
[2021-12-24 17:10] LABS: CALCIUM 8.6 mg/dL (8.5-10.1)
[2021-12-24 17:11] LABS: ALBUMIN 2.3 g/dl (3.4-5.0); BLOOD UREA NITROGEN 38.6 mg/dL (7-18)
[2021-12-24 17:14] LABS: CREATININE 1.3 mg/dL (0.55-1.3)
[2021-12-24 17:16] LABS: BILIRUBIN,TOTAL 0.2 mg/dL (0.2-1); TOT PROT 6.3 g/dl (6.4-8.2)
[2021-12-24 17:19] LABS: N-TERMINAL BNP 2971.5 pg/ml (5-125)
[2021-12-24] MEDS ORDERED: CEFTRIAXONE 1,000 MG in DEXTROSE 5%-WATER - 50 ML IVPB ONE (19:45)
[2021-12-24] MEDS ORDERED: FUROSEMIDE 40 MG/4 ML INJECTABLE VIAL IVPUSH ONE (19:46)
[2021-12-24] MEDS ORDERED: AZITHROMYCIN IVPB 500 MG in DEXTROSE 5%-WATER - 250 ML IVPB ONE (19:46)
[2021-12-24] MEDS ORDERED: FUROSEMIDE 40 MG/4 ML INJECTABLE VIAL ONE (20:00)
[2021-12-24] MEDS ORDERED: CEFTRIAXONE 1 GM/50 ML BAG ONE (20:00)
[2021-12-24] MEDS ORDERED: AZITHROMYCIN IVPB 500 MG/250 ML BAG IVPB ONE (20:00)
[2021-12-24] MEDS ORDERED: ACETAMINOPHEN 1000 MG/100 ML BAG IVPB ONE (20:10)
[2021-12-24] MEDS ORDERED: ACETAMINOPHEN INJECTION 100 ML IVPB ONE (20:11)
[2021-12-24] MEDS ORDERED: VANCOMYCIN/WATER FOR INJ (PEG) 1,000 MG/200 ML BAG IVPB SCH (20:35)
[2021-12-24 22:00] LABS: EPI CELLS 15 /uL (0-25.1); HYALINE CASTS 1 /uL (0-3.1); URINE APPEARANCE CLEAR; URINE BACTERIA 17 /uL (0-1359); URINE BILIRUBIN NEGATIVE (NEGATIVE); URINE COLOR YELLOW; URINE GLUCOSE (UA) NEGATIVE (NEGATIVE); URINE KETONE NEGATIVE (NEGATIVE); URINE LEUK ESTERASE 1+ (NEGATIVE); URINE NITRITE NEGATIVE (NEGATIVE); URINE PROTEIN 2+ (NEGATIVE); URINE RBC 21 /uL (0-23.9); URINE UROBILINOGEN 0.2 mg/dL (0.2-1.0); URINE WBC 9 /uL (0-25.8)
[2021-12-24 22:22] LABS: LACTIC ACID 2.3 mmol/L (0.4-2.0)
[2021-12-24 22:58] LABS: RETICULOCYTES 1.77 % (0.5-1.5)
[2021-12-24] MEDS ORDERED: SODIUM CHLORIDE 1,000 ML IV SCH (23:45)
[2021-12-25] MEDS: INSULIN SLIDING SCALE (NOVOLOG) 1 VIAL SQ SCH ×5 (00:21→21:50)
[2021-12-25] MEDS ORDERED: VANCOMYCIN/WATER FOR INJ (PEG) 1,000 MG/200 ML BAG IVPB ONE (01:30)
[2021-12-25] MEDS ORDERED: PIPERACILLIN/TAZOB 3.375 GM 3.375 GM in DEXTROSE 5%-WATER - 50 ML IVPB SCH (02:00)
[2021-12-25] MEDS ORDERED: PIPERACILLIN/TAZOBACTAM 3.375 GM VIAL IVPB ONE ×3 (04:24→17:27)
[2021-12-25] MEDS ORDERED: DEXTROSE 5%-WATER - 50 ML IVPB ONE ×3 (04:24→17:27)
[2021-12-25] MEDS: PIPERACILLIN/TAZOB 3.375 GM 3.375 GM in DEXTROSE 5%-WATER - 50 ML IVPB SCH ×3 (04:27→17:33)
[2021-12-25 08:41] LABS: BASO % 0.6 % (0-2.0); EOS % 4.7 % (0-4.5); HEMATOCRIT 22.3 % (32.4-45.2); HEMOGLOBIN 7.3 GM/dL (10.7-15.3); LYMPH % 13.9 % (8-40); MCH 29.7 pg (25.7-33.7); MCHC 32.8 g/dl (32.0-36.0); MEAN CELL VOLUME 90.4 fl (80-96); MEAN PLT VOLUME 9.4 fl (7.5-11.1); MONO % 12.1 % (3.8-10.2); NEUT % 68.7 % (42.8-82.8); PLATELET COUNT 192 10^3/uL (134-434); RBC 2.46 M/mm3 (3.60-5.2); WHITE BLOOD COUNT 10.3 K/mm3 (4.0-10.0)
[2021-12-25 09:03] LABS: ALBUMIN 1.9 g/dl (3.4-5.0); CALCIUM 8.1 mg/dL (8.5-10.1); MAGNESIUM 2.3 mg/dL (1.8-2.4)
[2021-12-25 09:05] LABS: BILIRUBIN,TOTAL 0.2 mg/dL (0.2-1); TOT PROT 5.6 g/dl (6.4-8.2)
[2021-12-25 09:06] LABS: CREATININE 1.3 mg/dL (0.55-1.3); PHOSPHOROUS 3.6 mg/dL (2.5-4.9)
[2021-12-25] MEDS ORDERED: VANCOMYCIN/WATER FOR INJ (PEG) 1,000 MG/200 ML BAG IVPB SCH (10:00)
[2021-12-25] MEDS: hydrALAZINE HCL 10 MG TABLET PO SCH ×2 (10:05→21:43)
[2021-12-25] MEDS: GABAPENTIN 300 MG CAPSULE PO SCH (10:05)
[2021-12-25] MEDS: CLOPIDOGREL BISULFATE 75 MG TABLET (FP) PO SCH (10:05)
[2021-12-25] MEDS ORDERED: SODIUM CHLORIDE 1,000 ML IV SCH (10:05)
[2021-12-25] MEDS: FERROUS SO4 325 MG TABLET (FP) PO SCH (10:05)
[2021-12-25] MEDS: ASPIRIN COATED 81 MG TABLET.EC PO SCH (10:06)
[2021-12-25] MEDS ORDERED: SODIUM CHLORIDE 0.45% 1,000 ML IV SCH (10:15)
[2021-12-25] MEDS ORDERED: guaiFENesin/D-M SUGAR-FREE/ACLHOL-FREE 118 ML BOTTLE PO PRN (11:00)
[2021-12-25] MEDS: ENOXAPARIN NA (PORCINE) 40 MG/0.4 ML DISP.SYRIN SQ SCH (11:20)
[2021-12-25] MEDS: ACETAMINOPHEN 325 MG TABLET (FP) PO PRN (13:37)
[2021-12-25] MEDS: guaiFENesin/D-M SUGAR-FREE/ACLHOL-FREE 5 ML UNIT DOSE PO PRN ×2 (13:39→21:43)
[2021-12-25] MEDS ORDERED: ALBUTEROL SO4 2.5/IPRATROPIUM 0.5 INH SOL 3 ML VIAL.NEB. NEB ONE (20:53)
[2021-12-25] MEDS: ALBUTEROL SO4 HFA INHALER IH PRN (21:02)
[2021-12-25] MEDS ORDERED: MELATONIN 5 MG TABLETS PO ONE (21:48)
[2021-12-25] MEDS: BUDESONIDE/FORMETEROL FUMARATE 80/4.5 mcg INHALER IH SCH (22:56)
[2021-12-26] MEDS: ACETAMINOPHEN 325 MG TABLET (FP) PO PRN ×3 (00:19→13:21)
[2021-12-26] MEDS ORDERED: PIPERACILLIN/TAZOBACTAM 3.375 GM VIAL IVPB ONE ×3 (02:12→17:25)
[2021-12-26] MEDS ORDERED: DEXTROSE 5%-WATER - 50 ML IVPB ONE ×3 (02:12→17:25)
[2021-12-26] MEDS: PIPERACILLIN/TAZOB 3.375 GM 3.375 GM in DEXTROSE 5%-WATER - 50 ML IVPB SCH ×3 (02:16→17:31)
[2021-12-26] MEDS: ALBUTEROL SO4 HFA INHALER IH PRN ×2 (02:17→20:19)
[2021-12-26] MEDS: INSULIN SLIDING SCALE (NOVOLOG) 1 VIAL SQ SCH ×4 (07:01→21:18)
[2021-12-26 07:35] LABS: BASO % 0.6 % (0-2.0); EOS % 6.6 % (0-4.5); HEMATOCRIT 21.1 % (32.4-45.2); LYMPH % 15.7 % (8-40); MCH 29.9 pg (25.7-33.7); MCHC 33.3 g/dl (32.0-36.0); MONO % 14.8 % (3.8-10.2); NEUT % 62.3 % (42.8-82.8); PLATELET COUNT 179 10^3/uL (134-434); RBC 2.35 M/mm3 (3.60-5.2); RDW 16.5 % (11.6-15.6); WHITE BLOOD COUNT 8.1 K/mm3 (4.0-10.0)
[2021-12-26 07:48] LABS: ALBUMIN 1.8 g/dl (3.4-5.0); BLOOD UREA NITROGEN 34.2 mg/dL (7-18)
[2021-12-26 07:51] LABS: CREATININE 1.5 mg/dL (0.55-1.3)
[2021-12-26 07:53] LABS: BILIRUBIN,TOTAL 0.2 mg/dL (0.2-1); TOT PROT 5.4 g/dl (6.4-8.2)
[2021-12-26] MEDS: CLOPIDOGREL BISULFATE 75 MG TABLET (FP) PO SCH (10:09)
[2021-12-26] MEDS: GABAPENTIN 300 MG CAPSULE PO SCH (10:09)
[2021-12-26] MEDS: hydrALAZINE HCL 10 MG TABLET PO SCH ×2 (10:09→21:18)
[2021-12-26] MEDS: ASPIRIN COATED 81 MG TABLET.EC PO SCH (10:09)
[2021-12-26] MEDS: FERROUS SO4 325 MG TABLET (FP) PO SCH (10:09)
[2021-12-26] MEDS: BUDESONIDE/FORMETEROL FUMARATE 80/4.5 mcg INHALER IH SCH ×2 (10:09→21:19)
[2021-12-26] MEDS: ENOXAPARIN NA (PORCINE) 40 MG/0.4 ML DISP.SYRIN SQ SCH (11:30)
[2021-12-26] MEDS: guaiFENesin/D-M SUGAR-FREE/ACLHOL-FREE 5 ML UNIT DOSE PO PRN (19:15)
[2021-12-26] MEDS ORDERED: MELATONIN 5 MG TABLETS PO ONE (22:29)
[2021-12-27] MEDS ORDERED: PIPERACILLIN/TAZOBACTAM 3.375 GM VIAL IVPB ONE ×3 (03:40→17:19)
[2021-12-27] MEDS ORDERED: DEXTROSE 5%-WATER - 50 ML IVPB ONE ×3 (03:40→17:19)
[2021-12-27] MEDS: PIPERACILLIN/TAZOB 3.375 GM 3.375 GM in DEXTROSE 5%-WATER - 50 ML IVPB SCH ×3 (03:46→17:57)
[2021-12-27] MEDS: ACETAMINOPHEN 325 MG TABLET (FP) PO PRN ×2 (06:00→12:02)
[2021-12-27] MEDS: INSULIN SLIDING SCALE (NOVOLOG) 1 VIAL SQ SCH ×4 (06:01→21:35)
[2021-12-27] MEDS: ALBUTEROL SO4 HFA INHALER IH PRN ×2 (06:30→11:24)
[2021-12-27] MEDS: guaiFENesin/D-M SUGAR-FREE/ACLHOL-FREE 5 ML UNIT DOSE PO PRN ×2 (06:30→12:44)
[2021-12-27] MEDS: ASPIRIN COATED 81 MG TABLET.EC PO SCH (09:40)
[2021-12-27] MEDS: hydrALAZINE HCL 10 MG TABLET PO SCH ×2 (09:40→21:35)
[2021-12-27] MEDS: GABAPENTIN 300 MG CAPSULE PO SCH (09:40)
[2021-12-27] MEDS: CLOPIDOGREL BISULFATE 75 MG TABLET (FP) PO SCH (09:40)
[2021-12-27] MEDS: FERROUS SO4 325 MG TABLET (FP) PO SCH (09:40)
[2021-12-27] MEDS: ENOXAPARIN NA (PORCINE) 40 MG/0.4 ML DISP.SYRIN SQ SCH (09:41)
[2021-12-27] MEDS: BUDESONIDE/FORMETEROL FUMARATE 80/4.5 mcg INHALER IH SCH ×2 (09:44→21:36)
[2021-12-27 10:28] LABS: BASO % 0.7 % (0-2.0); HEMATOCRIT 28.5 % (32.4-45.2); HEMOGLOBIN 9.5 GM/dL (10.7-15.3); LYMPH % 13.2 % (8-40); MCH 29.7 pg (25.7-33.7); MCHC 33.5 g/dl (32.0-36.0); MEAN CELL VOLUME 88.7 fl (80-96); MEAN PLT VOLUME 8.7 fl (7.5-11.1); MONO % 12.1 % (3.8-10.2); PLATELET COUNT 228 10^3/uL (134-434); RBC 3.21 M/mm3 (3.60-5.2); RDW 16.3 % (11.6-15.6); WHITE BLOOD COUNT 8.7 K/mm3 (4.0-10.0)
[2021-12-27 10:52] LABS: CALCIUM 8.5 mg/dL (8.5-10.1)
[2021-12-27 10:53] LABS: BLOOD UREA NITROGEN 29.7 mg/dL (7-18)
[2021-12-27 10:56] LABS: CREATININE 1.2 mg/dL (0.55-1.3)
[2021-12-27 10:58] LABS: BILIRUBIN,TOTAL 0.7 mg/dL (0.2-1); TOT PROT 6.3 g/dl (6.4-8.2)
[2021-12-27 11:03] LABS: ALBUMIN 2.4 g/dl (3.4-5.0)
[2021-12-27] MEDS ORDERED: FUROSEMIDE 40 MG/4 ML INJECTABLE VIAL IVPUSH ONE (11:12)
[2021-12-27] MEDS ORDERED: ALBUTEROL SO4 HFA INHALER IH PRN (19:19)
[2021-12-27] MEDS ORDERED: guaiFENesin/D-M SUGAR-FREE/ACLHOL-FREE 5 ML UNIT DOSE PO PRN (19:19)
[2021-12-27] MEDS ORDERED: guaiFENesin 200 MG/10 ML 10 ML UNIT-DOSE CUPS PO ONE (22:28)
[2021-12-28] MEDS ORDERED: PIPERACILLIN/TAZOBACTAM 3.375 GM VIAL IVPB ONE ×3 (02:14→15:40)
[2021-12-28] MEDS ORDERED: DEXTROSE 5%-WATER - 50 ML IVPB ONE ×3 (02:14→15:40)
[2021-12-28] MEDS: PIPERACILLIN/TAZOB 3.375 GM 3.375 GM in DEXTROSE 5%-WATER - 50 ML IVPB SCH ×3 (02:24→17:38)
[2021-12-28] MEDS: INSULIN SLIDING SCALE (NOVOLOG) 1 VIAL SQ SCH ×4 (06:06→21:42)
[2021-12-28] MEDS: hydrALAZINE HCL 10 MG TABLET PO SCH ×2 (09:32→21:39)
[2021-12-28] MEDS: ASPIRIN COATED 81 MG TABLET.EC PO SCH (09:35)
[2021-12-28] MEDS: GABAPENTIN 300 MG CAPSULE PO SCH (09:35)
[2021-12-28] MEDS: ENOXAPARIN NA (PORCINE) 40 MG/0.4 ML DISP.SYRIN SQ SCH (09:35)
[2021-12-28] MEDS: FERROUS SO4 325 MG TABLET (FP) PO SCH (09:35)
[2021-12-28] MEDS: CLOPIDOGREL BISULFATE 75 MG TABLET (FP) PO SCH (09:35)
[2021-12-28] MEDS: FUROSEMIDE 40 MG/4 ML INJECTABLE VIAL IVPUSH SCH (10:50)
[2021-12-28] MEDS: BUDESONIDE/FORMETEROL FUMARATE 80/4.5 mcg INHALER IH SCH ×2 (12:10→21:40)
[2021-12-28 12:13] LABS: BASO % 1.2 % (0-2.0); EOS % 10.6 % (0-4.5); HEMATOCRIT 31.6 % (32.4-45.2); HEMOGLOBIN 10.2 GM/dL (10.7-15.3); LYMPH % 16.1 % (8-40); MCH 28.8 pg (25.7-33.7); MCHC 32.2 g/dl (32.0-36.0); MEAN CELL VOLUME 89.5 fl (80-96); MEAN PLT VOLUME 9.2 fl (7.5-11.1); MONO % 14.4 % (3.8-10.2); NEUT % 57.7 % (42.8-82.8); PLATELET COUNT 264 10^3/uL (134-434); RBC 3.54 M/mm3 (3.60-5.2); WHITE BLOOD COUNT 8.3 K/mm3 (4.0-10.0)
[2021-12-28 13:10] LABS: CALCIUM 8.7 mg/dL (8.5-10.1)
[2021-12-28 13:11] LABS: ALBUMIN 2.4 g/dl (3.4-5.0); BLOOD UREA NITROGEN 25.8 mg/dL (7-18)
[2021-12-28 13:14] LABS: CREATININE 1.1 mg/dL (0.55-1.3)
[2021-12-28 13:15] LABS: BILIRUBIN,TOTAL 0.3 mg/dL (0.2-1)
[2021-12-28 13:16] LABS: TOT PROT 6.3 g/dl (6.4-8.2)
[2021-12-28] MEDS: ACETAMINOPHEN 325 MG TABLET (FP) PO PRN (15:43)
[2021-12-28] MEDS: MELATONIN 5 MG TABLETS PO PRN (21:39)
[2021-12-29] MEDS ORDERED: DEXTROSE 5%-WATER - 50 ML IVPB ONE ×3 (01:07→16:35)
[2021-12-29] MEDS ORDERED: PIPERACILLIN/TAZOBACTAM 3.375 GM VIAL IVPB ONE ×3 (01:07→16:35)
[2021-12-29] MEDS: PIPERACILLIN/TAZOB 3.375 GM 3.375 GM in DEXTROSE 5%-WATER - 50 ML IVPB SCH ×3 (01:38→17:39)
[2021-12-29] MEDS: INSULIN SLIDING SCALE (NOVOLOG) 1 VIAL SQ SCH ×4 (07:02→21:43)
[2021-12-29] MEDS: ACETAMINOPHEN 325 MG TABLET (FP) PO PRN ×2 (08:25→16:40)
[2021-12-29] MEDS: BUDESONIDE/FORMETEROL FUMARATE 80/4.5 mcg INHALER IH SCH ×2 (09:19→21:43)
[2021-12-29] MEDS: CLOPIDOGREL BISULFATE 75 MG TABLET (FP) PO SCH (09:19)
[2021-12-29] MEDS: hydrALAZINE HCL 10 MG TABLET PO SCH ×2 (09:19→21:39)
[2021-12-29] MEDS: FERROUS SO4 325 MG TABLET (FP) PO SCH (09:19)
[2021-12-29] MEDS: FUROSEMIDE 40 MG/4 ML INJECTABLE VIAL IVPUSH SCH (09:19)
[2021-12-29] MEDS: ASPIRIN COATED 81 MG TABLET.EC PO SCH (09:19)
[2021-12-29] MEDS: ENOXAPARIN NA (PORCINE) 40 MG/0.4 ML DISP.SYRIN SQ SCH (09:19)
[2021-12-29] MEDS: GABAPENTIN 300 MG CAPSULE PO SCH (09:19)
[2021-12-29] MEDS: MELATONIN 5 MG TABLETS PO PRN (21:39)
[2021-12-30] MEDS: ACETAMINOPHEN 325 MG TABLET (FP) PO PRN ×3 (01:50→20:40)
[2021-12-30] MEDS ORDERED: DEXTROSE 5%-WATER - 50 ML IVPB ONE ×3 (01:55→17:03)
[2021-12-30] MEDS ORDERED: PIPERACILLIN/TAZOBACTAM 3.375 GM VIAL IVPB ONE ×3 (01:55→17:02)
[2021-12-30] MEDS: PIPERACILLIN/TAZOB 3.375 GM 3.375 GM in DEXTROSE 5%-WATER - 50 ML IVPB SCH ×3 (02:04→17:43)
[2021-12-30] MEDS: INSULIN SLIDING SCALE (NOVOLOG) 1 VIAL SQ SCH ×4 (06:24→21:46)
[2021-12-30] MEDS ORDERED: amLODIPine BESYLATE 10 MG TABLET (FP) PO SCH (10:00)
[2021-12-30] MEDS: hydrALAZINE HCL 10 MG TABLET PO SCH ×2 (10:10→21:46)
[2021-12-30] MEDS: CLOPIDOGREL BISULFATE 75 MG TABLET (FP) PO SCH (10:10)
[2021-12-30] MEDS: ASPIRIN COATED 81 MG TABLET.EC PO SCH (10:10)
[2021-12-30] MEDS: FERROUS SO4 325 MG TABLET (FP) PO SCH (10:10)
[2021-12-30] MEDS: GABAPENTIN 300 MG CAPSULE PO SCH (10:10)
[2021-12-30] MEDS: FUROSEMIDE 40 MG/4 ML INJECTABLE VIAL IVPUSH SCH (10:11)
[2021-12-30] MEDS: ENOXAPARIN NA (PORCINE) 40 MG/0.4 ML DISP.SYRIN SQ SCH (10:53)
[2021-12-30] MEDS: BUDESONIDE/FORMETEROL FUMARATE 80/4.5 mcg INHALER IH SCH ×2 (10:54→21:46)
[2021-12-30] MEDS ORDERED: ACETAMINOPHEN 325 MG TABLET (FP) PO PRN (11:08)
[2021-12-30] MEDS: oxyCODONE HCL 5 MG TABLET PO PRN ×2 (11:25→20:40)
[2021-12-30] MEDS: MELATONIN 5 MG TABLETS PO PRN (21:47)
[2021-12-31] MEDS ORDERED: PIPERACILLIN/TAZOBACTAM 3.375 GM VIAL IVPB ONE (01:02)
[2021-12-31] MEDS ORDERED: DEXTROSE 5%-WATER - 50 ML IVPB ONE (01:02)
[2021-12-31] MEDS: PIPERACILLIN/TAZOB 3.375 GM 3.375 GM in DEXTROSE 5%-WATER - 50 ML IVPB SCH (02:00)
[2021-12-31] MEDS: oxyCODONE HCL 5 MG TABLET PO PRN ×4 (03:22→23:00)
[2021-12-31] MEDS: ACETAMINOPHEN 325 MG TABLET (FP) PO PRN ×2 (03:23→23:00)
[2021-12-31] MEDS: INSULIN SLIDING SCALE (NOVOLOG) 1 VIAL SQ SCH ×4 (06:05→21:21)
[2021-12-31 07:30] LABS: CALCIUM 8.8 mg/dL (8.5-10.1)
[2021-12-31 07:31] LABS: BLOOD UREA NITROGEN 23.7 mg/dL (7-18)
[2021-12-31 07:34] LABS: CREATININE 1.2 mg/dL (0.55-1.3)
[2021-12-31 07:49] LABS: HEMATOCRIT 30.5 % (32.4-45.2); HEMOGLOBIN 10.4 GM/dL (10.7-15.3); MCH 29.9 pg (25.7-33.7); MCHC 33.9 g/dl (32.0-36.0); MEAN CELL VOLUME 88.2 fl (80-96); PLATELET COUNT 237 10^3/uL (134-434); RBC 3.46 M/mm3 (3.60-5.2); RDW 15.6 % (11.6-15.6); WHITE BLOOD COUNT 7.8 K/mm3 (4.0-10.0)
[2021-12-31] MEDS: FUROSEMIDE 40 MG/4 ML INJECTABLE VIAL IVPUSH SCH (09:38)
[2021-12-31] MEDS: ENOXAPARIN NA (PORCINE) 40 MG/0.4 ML DISP.SYRIN SQ SCH (09:38)
[2021-12-31] MEDS: CLOPIDOGREL BISULFATE 75 MG TABLET (FP) PO SCH (09:39)
[2021-12-31] MEDS: hydrALAZINE HCL 10 MG TABLET PO SCH (09:39)
[2021-12-31] MEDS: amLODIPine BESYLATE 10 MG TABLET (FP) PO SCH (09:39)
[2021-12-31] MEDS: AMOX TR/POT CLAV 875MG/125MG TABLETS (FP) PO SCH ×2 (09:39→17:14)
[2021-12-31] MEDS: GABAPENTIN 300 MG CAPSULE PO SCH (09:39)
[2021-12-31] MEDS: FERROUS SO4 325 MG TABLET (FP) PO SCH (09:39)
[2021-12-31] MEDS: BUDESONIDE/FORMETEROL FUMARATE 80/4.5 mcg INHALER IH SCH ×2 (09:44→21:21)
[2021-12-31] MEDS: ASPIRIN COATED 81 MG TABLET.EC PO SCH (09:46)
[2021-12-31 11:14] VITALS: BMI 24.5
[2021-12-31] MEDS: LISINOPRIL 5 MG TABLET PO SCH ×2 (11:24→21:21)
[2021-12-31] MEDS: MELATONIN 5 MG TABLETS PO PRN (21:21)
[2022-01-01] MEDS: oxyCODONE HCL 5 MG TABLET PO PRN ×3 (05:52→19:16)
[2022-01-01] MEDS: ACETAMINOPHEN 325 MG TABLET (FP) PO PRN ×3 (05:53→19:15)
[2022-01-01] MEDS: INSULIN SLIDING SCALE (NOVOLOG) 1 VIAL SQ SCH ×4 (06:18→21:08)
[2022-01-01] MEDS: AMOX TR/POT CLAV 875MG/125MG TABLETS (FP) PO SCH ×2 (08:08→17:28)
[2022-01-01] MEDS: ENOXAPARIN NA (PORCINE) 40 MG/0.4 ML DISP.SYRIN SQ SCH (10:03)
[2022-01-01] MEDS: FUROSEMIDE 40 MG/4 ML INJECTABLE VIAL IVPUSH SCH (10:03)
[2022-01-01] MEDS: FERROUS SO4 325 MG TABLET (FP) PO SCH (10:03)
[2022-01-01] MEDS: CLOPIDOGREL BISULFATE 75 MG TABLET (FP) PO SCH (10:03)
[2022-01-01] MEDS: ASPIRIN COATED 81 MG TABLET.EC PO SCH (10:03)
[2022-01-01] MEDS: amLODIPine BESYLATE 10 MG TABLET (FP) PO SCH (10:03)
[2022-01-01] MEDS: GABAPENTIN 300 MG CAPSULE PO SCH (10:03)
[2022-01-01] MEDS: LISINOPRIL 5 MG TABLET PO SCH ×2 (10:03→21:07)
[2022-01-01] MEDS: BUDESONIDE/FORMETEROL FUMARATE 80/4.5 mcg INHALER IH SCH ×2 (10:04→21:07)
[2022-01-01] MEDS: MELATONIN 5 MG TABLETS PO PRN (21:07)
[2022-01-02] MEDS: ACETAMINOPHEN 325 MG TABLET (FP) PO PRN (01:18)
[2022-01-02] MEDS: oxyCODONE HCL 5 MG TABLET PO PRN ×2 (01:18→08:02)
[2022-01-02] MEDS: INSULIN SLIDING SCALE (NOVOLOG) 1 VIAL SQ SCH ×2 (06:19→11:28)
[2022-01-02] MEDS: AMOX TR/POT CLAV 875MG/125MG TABLETS (FP) PO SCH (08:04)
[2022-01-02 09:11] VITALS: TEMP 98.5
[2022-01-02] MEDS: amLODIPine BESYLATE 10 MG TABLET (FP) PO SCH (09:40)
[2022-01-02] MEDS: FERROUS SO4 325 MG TABLET (FP) PO SCH (09:40)
[2022-01-02] MEDS: CLOPIDOGREL BISULFATE 75 MG TABLET (FP) PO SCH (09:40)
[2022-01-02] MEDS: FUROSEMIDE 40 MG/4 ML INJECTABLE VIAL IVPUSH SCH (09:40)
[2022-01-02] MEDS: ASPIRIN COATED 81 MG TABLET.EC PO SCH (09:40)
[2022-01-02] MEDS: GABAPENTIN 300 MG CAPSULE PO SCH (09:40)
[2022-01-02] MEDS: LISINOPRIL 5 MG TABLET PO SCH (09:40)
[2022-01-02] MEDS: ENOXAPARIN NA (PORCINE) 40 MG/0.4 ML DISP.SYRIN SQ SCH (09:41)
[2022-01-02] MEDS: BUDESONIDE/FORMETEROL FUMARATE 80/4.5 mcg INHALER IH SCH (09:43)
[2022-01-02 15:56] VITALS: BP 143/68; PULSE 68
== END 2022-01-02 19:37 | disposition home health service (06) | DRG 193 ==
LOC: JER 13:51 → JERBED 20:22 → J6S 12-25 00:11 → J4W 12-27 16:11
PROVIDERS: ADMIT Internal Medicine
PROC: 30233N1 Transfusion of Nonautologous Red Blood Cells into Peripheral Vein, Percutaneous Approach (ICD-10-PCS; principal; 2021-12-26)
DX: J18.9 Pneumonia, unspecified organism (principal); I50.33 Acute on chronic diastolic (congestive) heart failure; N17.9 Acute kidney failure, unspecified; E11.52 Type 2 diabetes mellitus with diabetic peripheral angiopathy with gangrene; J90 Pleural effusion, not elsewhere classified; E11.51 Type 2 diabetes mellitus with diabetic peripheral angiopathy without gangrene; I11.0 Hypertensive heart disease with heart failure; E11.621 Type 2 diabetes mellitus with foot ulcer; D50.9 Iron deficiency anemia, unspecified; E78.5 Hyperlipidemia, unspecified; L97.509 Non-pressure chronic ulcer of other part of unspecified foot with unspecified severity; Z89.421 Acquired absence of other right toe(s); Z95.9 Presence of cardiac and vascular implant and graft, unspecified; E87.5 Hyperkalemia; L03.032 Cellulitis of left toe; F10.129 Alcohol abuse with intoxication, unspecified
CPT/HCPCS: 0598T; 0599T; 36415; 36430; 71045-TC-FY; 71275-TC; 80048; 80053; 80061; 81003; 82272; 82728; 82962; 83540; 83550; 83605; 83735; 83880; 84100; 84484; 85025; 85027; 85045; 85379; 86850; 86900; 86901; 86922; 87040; 87086; 87633; 87804; 93005; 93010; 93306-TC; 93970-TC; 94010; 97116-GP; 97161-GP; 99285-25; C9803-CS; G0277; P9058; Q9967; U0003; U0005

== ENCOUNTER 2023-11-25 14:41 | Inpatient (IN) | payer OTHER ==
[2023-11-25] MEDS: ACETAMINOPHEN 1000 MG/100 ML BAG IVPB PRN (17:15)
[2023-11-25 17:34] LABS: HEMATOCRIT 23.4 % (32.4-45.2); HEMOGLOBIN 7.5 G/dL (10.7-15.3); MCH 30.1 pg (25.7-33.7); MCHC 31.9 g/dl (32.0-36.0); MEAN CELL VOLUME 94.3 fl (80-96); MEAN PLT VOLUME 8.3 fl (7.5-11.1); PLATELET COUNT 341.5 10^3/uL (134-434); RBC 2.48 10^6/uL (3.60-5.2); RDW 15.2 % (11.6-15.6); WHITE BLOOD COUNT 7.4 10^3/uL (4.0-10.8)
[2023-11-25 17:44] LABS: INR 1.07 (0.83-1.09); PROTHROMBIN TIME (PATIENT) 12.4 SEC (9.7-13.0)
[2023-11-25 17:47] LABS: ACTIVATED PTT 35.4 SECONDS (25.2-36.5)
[2023-11-25 17:54] LABS: PLATELET ESTIMATE ADEQUATE
[2023-11-25 17:57] LABS: ALBUMIN 3.4 g/dl (3.4-5.0); BILIRUBIN,TOTAL 0.2 mg/dl (0.2-1); CALCIUM 8.8 mg/dl (8.5-10.1); CREATININE 2.4 mg/dl (0.6-1.3); POTASSIUM 4.8 mmol/L (3.5-5.1); TOT PROT 6.4 g/dl (6.4-8.2)
[2023-11-25 18:18] VITALS: BMI 22.4
[2023-11-25] MEDS: FUROSEMIDE 40 MG TABLET (FP) PO SCH (18:26)
[2023-11-25] MEDS ORDERED: traMADol HCL 50 MG TABLET PO SCH (22:00)
[2023-11-25] MEDS: FERROUS SO4 325 MG TABLET (FP) PO SCH (22:12)
[2023-11-25] MEDS: hydrALAZINE HCL 25 MG TABLET (FP) PO SCH (22:12)
[2023-11-25] MEDS: traMADol HCL 50 MG TABLET PO PRN (23:52)
[2023-11-26] MEDS: PANTOPRAZOLE 40 MG TABLET PO SCH (07:20)
[2023-11-26] MEDS: LOSARTAN POTASSIUM 25 MG TABLET PO SCH (09:10)
[2023-11-26] MEDS: ATORVASTATIN CA 40 MG TABLET (FP) PO SCH (09:10)
[2023-11-26] MEDS: GABAPENTIN 100 MG CAPSULE PO SCH (09:11)
[2023-11-26] MEDS: amLODIPine BESYLATE 5 MG TABLET (FP) PO SCH (09:11)
[2023-11-26] MEDS ORDERED: hydrALAZINE HCL 25 MG TABLET (FP) PO SCH (10:00)
[2023-11-26] MEDS ORDERED: ONDANSETRON 4 MG/2 ML VIAL IVPUSH PRN (10:48)
[2023-11-26] MEDS ORDERED: MIDAZOLAM HCL 2 MG/2 ML SINGLE DOSE VIAL ONE (10:54)
[2023-11-26] MEDS ORDERED: DEXAMETHASONE SOD PHOSPHATE/PF 10 MG/ML SDV ONE (10:54)
[2023-11-26] MEDS ORDERED: FENTANYL CITRATE/PF 50 MCG/ML VIAL ONE (10:54)
[2023-11-26] MEDS ORDERED: ROPIVACAINE HCL 0.5% 30ML VIAL ONE (10:54)
[2023-11-26] MEDS ORDERED: DEXAMETHASONE SOD PHOSPHATE 4 MG/1 ML VIAL ONE (11:00)
[2023-11-26] MEDS ORDERED: LACTATED RINGERS SOLUTION 1,000 ML IV SCH (11:00)
[2023-11-26] MEDS ORDERED: EPINEPHrine/PF 1 MG/1 ML (1:1,000) AMPULE ONE (11:06)
[2023-11-26] MEDS ORDERED: VANCOMYCIN 1,000 MG VIAL (RESTRICTED TO ID ONLY) ONE (11:06)
[2023-11-26] MEDS ORDERED: TRANEXAMIC ACID 1000 MG/10 ML VIAL ONE ×2 (11:06→13:24)
[2023-11-26] MEDS ORDERED: ceFAZolin SODIUM 1 GM VIAL ONE (12:37)
[2023-11-26] MEDS ORDERED: ACETAMINOPHEN INJECTION 100 ML IVPB ONE (15:41)
[2023-11-26] MEDS: ACETAMINOPHEN 1000 MG/100 ML BAG IVPB ONE (16:35)
[2023-11-26] MEDS ORDERED: ACETAMINOPHEN 500 MG TABLET (FP) PO SCH (18:00)
[2023-11-26 18:01] LABS: HEMATOCRIT 32.1 % (32.4-45.2); HEMOGLOBIN 10.5 G/dL (10.7-15.3); MCH 29.7 pg (25.7-33.7); MCHC 32.8 g/dl (32.0-36.0); MEAN CELL VOLUME 90.6 fl (80-96); MEAN PLT VOLUME 8.2 fl (7.5-11.1); RBC 3.54 10^6/uL (3.60-5.2); RDW 15.5 % (11.6-15.6); WHITE BLOOD COUNT 11.2 10^3/uL (4.0-10.8)
[2023-11-26 18:16] LABS: PLATELET ESTIMATE ADEQUATE
[2023-11-26 18:18] LABS: ALBUMIN 3.2 g/dl (3.4-5.0); BILIRUBIN,TOTAL 0.5 mg/dl (0.2-1); CALCIUM 8.9 mg/dl (8.5-10.1); CREATININE 2.6 mg/dl (0.6-1.3); TOT PROT 6.2 g/dl (6.4-8.2)
[2023-11-26 18:22] LABS: POTASSIUM 5.8 mmol/L (3.5-5.1)
[2023-11-26] MEDS: CEFAZOLIN 1 GM in DEXTROSE 5%-WATER - 50 ML IVPB SCH (20:35)
[2023-11-26] MEDS: SODIUM CHLORIDE 0.45% 500 ML IV ONE (22:15)
[2023-11-26] MEDS: FERROUS SO4 325 MG TABLET (FP) PO SCH (22:34)
[2023-11-26] MEDS: traMADol HCL 50 MG TABLET PO PRN (22:34)
[2023-11-26] MEDS: hydrALAZINE HCL 25 MG TABLET (FP) PO SCH (22:34)
[2023-11-27] MEDS: ACETAMINOPHEN 500 MG TABLET (FP) PO SCH (00:26)
[2023-11-27] MEDS: PANTOPRAZOLE 40 MG TABLET PO SCH (07:02)
[2023-11-27 09:42] LABS: ALBUMIN 3.2 g/dl (3.4-5.0); BILIRUBIN,TOTAL 0.2 mg/dl (0.2-1); CALCIUM 8.5 mg/dl (8.5-10.1); CREATININE 2.7 mg/dl (0.6-1.3); POTASSIUM 5.1 mmol/L (3.5-5.1)
[2023-11-27 09:51] LABS: BASO % 0.2 % (0-2.0); HEMATOCRIT 28.9 % (32.4-45.2); HEMOGLOBIN 9.8 GM/dL (10.7-15.3); LYMPH % 7.5 % (8-40); MCH 29.9 pg (25.7-33.7); MCHC 33.9 g/dl (32.0-36.0); MEAN CELL VOLUME 88.3 fl (80-96); MEAN PLT VOLUME 7.8 fl (7.5-11.1); NEUT % 81.3 % (42.8-82.8); PLATELET COUNT 312 10^3/uL (134-434); RBC 3.28 M/mm3 (3.60-5.2); RDW 15.7 % (11.6-15.6); WHITE BLOOD COUNT 11.2 K/mm3 (4.0-10.0)
[2023-11-27] MEDS ORDERED: FUROSEMIDE 40 MG/4 ML INJECTABLE VIAL IVPUSH ONE (10:00)
[2023-11-27] MEDS ORDERED: LOSARTAN POTASSIUM 25 MG TABLET PO SCH (10:00)
[2023-11-27] MEDS: ASPIRIN 81 MG CHEWABLE TABLETS PO SCH (10:50)
[2023-11-27] MEDS: GABAPENTIN 300 MG CAPSULE PO SCH (10:50)
[2023-11-27] MEDS: ATORVASTATIN CA 40 MG TABLET (FP) PO SCH (10:50)
[2023-11-27] MEDS: amLODIPine BESYLATE 5 MG TABLET (FP) PO SCH (10:51)
[2023-11-27] MEDS: hydrALAZINE HCL 25 MG TABLET (FP) PO ONE (10:51)
[2023-11-27] MEDS: SODIUM CHLORIDE 0.45% 1,000 ML IV SCH (10:52)
[2023-11-27 11:58] LABS: EPITHELIAL CELLS 0-5 /hpf
[2023-11-27] MEDS: METOCLOPRAMIDE HCL INJECTION 10 MG/2 ML VIAL IVPUSH PRN (13:44)
[2023-11-27] MEDS: hydrALAZINE HCL 25 MG TABLET (FP) PO SCH (13:46)
[2023-11-28 10:35] LABS: ALBUMIN 3.2 g/dl (3.4-5.0); ALK PHOS 146 U/L (45-117); ANION GAP 9 mmol/L (4-13); BILIRUBIN,TOTAL 0.2 mg/dl (0.2-1); CALCIUM 8.3 mg/dl (8.5-10.1); CHLORIDE 110 mmol/L (98-107); CO2 21 mmol/L (21-32); CREATININE 2.5 mg/dl (0.6-1.3); GLUCOSE,RANDOM 104 mg/dl (74-106); POTASSIUM 5.1 mmol/L (3.5-5.1); SGOT/AST 16 U/L (15-37); SODIUM 140 mmol/L (136-145); TOT PROT 5.8 g/dl (6.4-8.2)
[2023-11-28 10:53] LABS: BASO % 0.2 % (0-2.0); EOS % 2.1 % (0-4.5); HEMATOCRIT 29.9 % (32.4-45.2); HEMOGLOBIN 10.1 GM/dL (10.7-15.3); LYMPH % 16.2 % (8-40); MCH 30.3 pg (25.7-33.7); MCHC 33.9 g/dl (32.0-36.0); MEAN CELL VOLUME 89.6 fl (80-96); MEAN PLT VOLUME 7.6 fl (7.5-11.1); MONO % 14.9 % (3.8-10.2); NEUT % 66.6 % (42.8-82.8); PLATELET COUNT 304 10^3/uL (134-434); RBC 3.33 M/mm3 (3.60-5.2); RDW 16.3 % (11.6-15.6); WHITE BLOOD COUNT 10.2 K/mm3 (4.0-10.0)
[2023-11-28 11:13] LABS: SGPT/ALT < 6 U/L (7-52)
[2023-11-28] MEDS: amLODIPine BESYLATE 5 MG TABLET (FP) PO ONE (11:39)
[2023-11-29 09:06] LABS: ALBUMIN 3.1 g/dl (3.4-5.0); BILIRUBIN,TOTAL 0.2 mg/dl (0.2-1); CALCIUM 8.1 mg/dl (8.5-10.1); CREATININE 2.7 mg/dl (0.6-1.3); POTASSIUM 5.5 mmol/L (3.5-5.1); TOT PROT 5.6 g/dl (6.4-8.2)
[2023-11-29] MEDS: amLODIPine BESYLATE 10 MG TABLET (FP) PO SCH (09:31)
[2023-11-29 10:14] LABS: BASO % 0.4 % (0-2.0); EOS % 2.1 % (0-4.5); HEMATOCRIT 27.7 % (32.4-45.2); HEMOGLOBIN 9.1 GM/dL (10.7-15.3); MCH 29.9 pg (25.7-33.7); MEAN CELL VOLUME 90.5 fl (80-96); MEAN PLT VOLUME 7.8 fl (7.5-11.1); MONO % 15.2 % (3.8-10.2); NEUT % 66.3 % (42.8-82.8); PLATELET COUNT 277 10^3/uL (134-434); RBC 3.06 M/mm3 (3.60-5.2); RDW 16.2 % (11.6-15.6); WHITE BLOOD COUNT 10.5 K/mm3 (4.0-10.0)
[2023-11-29 11:13] LABS: HIV INTERPRETATION NEGATIVE (NEGATIVE)
[2023-11-29] MEDS: SODIUM ZIRCONIUM CYCLOSILICATE (LOKELMA) 5 GM PACKET PO SCH (12:14)
[2023-11-29] MEDS: traMADol HCL 50 MG TABLET PO PRN (21:45)
[2023-11-30 06:42] VITALS: RESP 18
[2023-11-30 09:23] LABS: ALBUMIN 2.8 g/dl (3.4-5.0); BILIRUBIN,TOTAL 0.2 mg/dl (0.2-1); CALCIUM 8.3 mg/dl (8.5-10.1); CREATININE 2.6 mg/dl (0.6-1.3); TOT PROT 5.1 g/dl (6.4-8.2)
[2023-11-30 09:49] LABS: BASO % 0.4 % (0-2.0); EOS % 2.8 % (0-4.5); HEMATOCRIT 25.7 % (32.4-45.2); HEMOGLOBIN 8.8 GM/dL (10.7-15.3); LYMPH % 15.6 % (8-40); MCH 30.5 pg (25.7-33.7); MEAN CELL VOLUME 89.7 fl (80-96); MEAN PLT VOLUME 8.1 fl (7.5-11.1); MONO % 12.5 % (3.8-10.2); NEUT % 68.7 % (42.8-82.8); PLATELET COUNT 248 10^3/uL (134-434); RBC 2.87 M/mm3 (3.60-5.2); WHITE BLOOD COUNT 9.3 K/mm3 (4.0-10.0)
[2023-11-30] MEDS: SODIUM CHLORIDE 1,000 ML IV SCH (11:25)
[2023-11-30 11:48] VITALS: BP 167/55; PULSE 76; TEMP 98.5
== END 2023-11-30 18:05 | disposition home or self-care (01) | DRG 493 ==
LOC: FER 14:41 → FM/S 16:21
PROVIDERS: ADMIT Internal Medicine; ATTEND Internal Medicine
PROC: 30233N1 Transfusion of Nonautologous Red Blood Cells into Peripheral Vein, Percutaneous Approach (ICD-10-PCS; 2023-11-25)
PROC: 0LS40ZZ Reposition Left Upper Arm Tendon, Open Approach (ICD-10-PCS; 2023-11-26)
PROC: 0PSD04Z Reposition Left Humeral Head with Internal Fixation Device, Open Approach (ICD-10-PCS; principal; 2023-11-26 13:03)
DX: S42.202A Unspecified fracture of upper end of left humerus, initial encounter for closed fracture (principal); D62 Acute posthemorrhagic anemia; I13.0 Hypertensive heart and chronic kidney disease with heart failure and stage 1 through stage 4 chronic kidney disease, or unspecified chronic kidney disease; E11.9 Type 2 diabetes mellitus without complications; N18.9 Chronic kidney disease, unspecified; D64.9 Anemia, unspecified; R79.89 Other specified abnormal findings of blood chemistry; I50.9 Heart failure, unspecified; K21.9 Gastro-esophageal reflux disease without esophagitis; E78.5 Hyperlipidemia, unspecified; E87.5 Hyperkalemia
CPT/HCPCS: 36415; 36430; 71045-TC-FY; 73030-TC-LT-FY; 73200-TC-RT; 76775-TC; 76856-TC; 80048; 80053; 81003; 81015; 82570; 82728; 82962; 83540; 83550; 84155; 84156; 84165; 84484; 85025; 85027; 85610; 85730; 86038; 86160; 86803; 86850; 86900; 86901; 86922; 87086; 87340; 87389; 93005; 94760; 97116-GP; 97162-GP; 99285-25; C1713; J0131; P9058